=== PATIENT | male | born 1960 | race Caucasian/White ===

== ENCOUNTER 2023-05-15 23:39 | Inpatient (IN) | payer MEDICARE, OTHER, SELFPAY ==
[2023-05-15 21:04] VITALS: BMI 41.9
--- NOTE | 2023-05-15 21:29 | ED.CVA ---
History of Present Illness
General
Chief Complaint: CVA/TIA Symptoms
Source: patient and ambulance crew
Exam Limitations: none
Time Seen by Provider: 05/15/23 21:12
Nursing documentation reviewed up to this point in time: agreed with
Onset of Stroke Symptoms
Onset of symptoms known: Yes
Date of onset of symptoms: 05/15/23
Time of onset of symptoms: 19:30
Travel History
Have you had any contact with someone who has COVID-19?: Unable to Answer
Do you have any symptoms of coronavirus? Fever > 100 degrees, chills, cough, shortness of breath, sore throat, loss of taste or smell, muscle aches, or headache?: Unable to Answer
History of Present Illness
History of Present Illness:
62-year-old male presents emergency department after being found on the floor of his bathroom from a syncope episode at 7:30 PM. He had slurred speech and right-sided weakness for EMS. He has a history of Parkinson's.
Past History
Past History
ED Past Medical History: CVA, GERD, HTN, Hypercholesterolemia, Hypothyroidism and Other (Parkinsons)
ED Past Surgical History: None
Social History
Tobacco: Former smoker
Alcohol: None
Personal:
Living: detention
Review of Systems
Review of Systems
Allergies reviewed?: Yes
All Other Systems: Not applicable
Constitutional: Reports no symptoms
EENT: Reports no symptoms
Respiratory: Reports no symptoms
Cardiac: Reports syncope
ABD/GI: Reports no symptoms
: Reports no symptoms
Musculoskeletal: Reports no symptoms
Skin: Reports no symptoms
Neurological: Reports weakness and other (Slurred speech)
Endocrine: Reports no symptoms
Hematologic/Lymphatic: Reports no symptoms
Psychiatric: Reports no symptoms
Phy Exam
Physical Exam
Physical Exam:
Physical Exam
General: Afebrile
Neck: supple. no meningeal signs. normal posterior pharynx
Heart: s1/s2 regular rate and rhythm, no murmur. equal radial
pulses.
HEENT: Pupils equal round reactive to light, EOMI
Lungs: no acute respiratory distress. clear bilaterally
Abdomen: normal bowel sounds. not tender. no CVAT
Neuro: Slurred speech, confused. No focal neurological deficits cranial nerves II through XII intact, unable to lift bilateral legs
Skin: no rash
Psychiatric: well kept. interactive and cooperative
Extremities: no edema. no calf tenderness. negative homans. good distal pulses
Scores
NIH Stroke Score
Level of Consciousness: 0 - Alert
LOC Questions: 0-Answers both correctly
LOC Commands: 0-Performs both correctly
Best Horizontal Gaze: 0-Normal
Visual Ferrara: 0=Normal, no visual loss
Facial Palsy: 0=Normal, symmetrical
Motor - Right Arm: 1=Drift < 10 seconds
Motor - Left Arm: 1=Drift < 10 seconds
Motor - Right Le-None vs. gravity
Motor - Left Le-None vs. gravity
Limb Ataxia: 0-Absent
Sensation: 0-Normal
Best Language: 0-No aphasia
Dysarthria: 2-Severe slurring
Extinction and Inattention: 0-No abnormality
Total Score:: 10
MRS Score
Modified Hendricks Scale (mRS): Moderate disability. Requires some help, able to walk unassisted.
Score: 3
Thrombolytic Contraindication
Inclusion and Exclusion criteria reviewed: Yes
Reasons for NON-Tx with Thrombolytics POSSIBLE Exclusions: Seizure at onset
Course
Orders/Labs/Results
Orders:
Orders
05/15/23 21:05
Electrocardiogram (*1) Urgent
Reason for Study: Other
Other Reason for Exam: Possible Stroke
CT Head W/o Cont STROKE ALERT Urgent
Reason For Exam: slurred speech, right sided weakness
EKG- Treatment ONCE
05/15/23 21:20
CT Head/Neck Ang STROKE ALERT Urgent
Comment:
Reason For Exam: slurred speech, confusion
05/15/23 21:46
Complete Blood Count/With Diff Urgent
Comprehensive Metabolic Panel Urgent
PTT Urgent
Prothrombin Time Urgent
Troponin I Urgent
05/15/23 22:34
CR Chest Portable - 1 View Urgent
Comment:
Reason For Exam: cough
Reason Study Needs to be Portable: Unable to Transport
Abnormal Lab Results
05/15/23
21:46
RBC 3.63 L 10^6/uL
(4.70-6.10)
Hgb 9.8 L g/dL
(13.0-18.0)
Hct 30.2 L %
(39.0-52.0)
MCHC 32.5 L g/dL
(33.0-37.0)
RDW 14.7 H %
(11.5-14.5)
Abs Immat Gran (auto) 0.2 H 10^3/uL
(0-0.05)
Absolute Lymphs (auto) 0.7 L 10^3/uL
(1.2-3.4)
Immature Gran % 3.2 H %
(0-0.5)
Neutrophils % 77.6 H %
(42.2-75.2)
Lymphocytes % 10.0 L %
(20.5-51.1)
BUN 33 H mg/dl
(9-20)
Creatinine 1.5 H mg/dL
(0.7-1.3)
Glucose 127 H mg/dl
(70-99)
Total Protein 5.9 L g/dl
(6.3-8.2)
Albumin 2.8 L g/dl
(3.5-5.0)
05/15/23 21:46
05/15/23 21:46
Vital Signs
Initial and Last Documented VS:
Initial Vital Signs
Temp Pulse Resp BP Pulse Ox
98.2 F 75 14 129/72 96
05/15/23 21:33 05/15/23 21:33 05/15/23 21:33 05/15/23 21:33 05/15/23 21:33
Last Documented Vital Signs
Temp Pulse Resp BP Pulse Ox
98.2 F 75 14 129/72 96
05/15/23 21:33 05/15/23 21:33 05/15/23 21:33 05/15/23 21:33 05/15/23 21:33
MDM/Problems Addressed
Differential Diagnosis Includes:
CVA, TIA, syncope
MDM/Problems Addressed:
62-year-old male with right-sided weakness and confusion, now resolving. No weakness seen on my exam. CT head no acute findings. Discussed with Dr. Lee, who does not recommend TNK. This is based on patient's resolving symptoms and
presentation with syncope.
Chronic conditions affecting care: HTN and Neurological disorder (epilepsy)
Acute Exacerbation and/or Progression of Chronic Illness: HTN and Neurological disorder
*Radiology
Radiology exam reviewed: radiology read reviewed (CT head no acute findings, CT a head and neck no acute findings, basilar tip aneurysm)
*Pulse Oximetry
Patient hypoxic: no
*EKG
Interpreted by ED Provider?: Yes
EKG Intrepretation Date: 05/15/23
EKG Intrepretation Time: 21:42
Interpretation: normal
Comparison EKG: changes noted
Heart Rate: 73
Rate: normal
Rhythm: sinus
Lowry: normal axis
Interval: normal interval
QRS Pattern: normal QRS
Ischemia: no ischemia
*[employer] Interpretation
Rate: normal
Interpretation: normal
Heart Rate: 75
Rhythm: sinus
*Critical Care Note
Total Time (30-74mins, 75-104mins- exclusive of procedures): 30
comment:
Critical care statement: A total of 30 minutes of critical care time was provided for this patient. This includes management of unstable vital signs, evaluation of the patient at bedside, reviewing the patient's pertinent medical records, discussion
with consultants, review of old EKGs and review of pertinent medical records. This time with separate from time utilized to perform the aforementioned documented procedures
Data Reviewed
Review of Other/Old Records Reveals: Labs (prior hb 12.2 on 11/27/21)
Prescriptions/Medications Considered But Not Given:
TNK considered but not indicated
Patient Management
Social determinants of health affecting care: Living situation and Strong social support
Discussion with other providers: Hospitalist and Survey Crew Chief (neurology Dr. Lee)
Escalation/DeEscalation of care consider admission/obs:
admit indicated
ED Attending Note
-
Portions of this chart may have been created with voice recognition software.� Occasional wrong word or��sound alike� substitutions may have occurred due to the inherent limitations of voice recognition software.
Discharge Plan
Departure
Patient Disposition: Admit
Date of Disposition: 05/15/23
Time of Disposition: 22:20
Admit to: Telemetry
Presentation/result/management discussed w/ accepting MD/DO: Hospitalist
Patient with high blood pressure during this ER visit?: Yes
Condition: Fair
Discharge Problem:
Syncope, TIA (transient ischemic attack)
Prescriptions:
No Action
loratadine [Claritin] 10 mg Tablet
10 mg PO DAILY PRN (Reason: allergies)
ziprasidone HCl [Geodon] 80 MG capsule
80 mg PO BID
furosemide [Lasix] 40 MG tablet
40 mg PO DAILY
divalproex 125 MG capsule, delayed rel sprinkle
625 mg PO BID
tramadol 50 MG tablet
50 mg PO Q8HPRN PRN (Reason: Moderate Pain)
omeprazole 20 MG capsule,delayed release(DR/EC)
20 mg PO BID
acetaminophen 325 MG tablet
650 mg PO Q6H MDD 3000 MG PRN (Reason: Mild pain/Temp>100)
magnesium hydroxide 30 ML suspension
30 ml PO DAILY PRN (Reason: if no bm x 3 days)
bisacodyl [OneLAX Bisacodyl] 10 MG suppository
10 mg AR DAILY PRN (Reason: If MOM ineffective)
Enema 135 ML enema
118 ml RC DAILY PRN (Reason: if dulcolax ineffective)
lidocaine 4 % Cream
1 applic TOPICAL BID
Rx Instructions:
apply to back
levothyroxine [Synthroid] 25 mcg Tablet
25 mcg PO DAILY
gabapentin 300 mg Capsule
300 mg PO TID
carbidopa-levodopa 25-100 mg Tablet
1 tab PO TID
ketoconazole 2 % Cream
1 applic TOPICAL BID
Rx Instructions:
Apply to Face and Ears
Biofreeze (menthol) 4 % Gel
1 applic TOPICAL Q6H PRN (Reason: topical pain)
Rx Instructions:
apply to affected area/ b/l arm
triamcinolone acetonide 40 mg/mL Suspension
40 mg IM PRN PRN (Reason: lower back pain)
Rx Instructions:
administered by MD only
simvastatin 40 mg Tablet
40 mg PO HS
lidocaine HCl 10 mg/mL (1 %) Solution
2 ml IM ONCE PRN (Reason: low back pain)
Rx Instructions:
Administration by MD only
diclofenac sodium [Voltaren] 1 % Gel
1 ea TOPICAL DAILY
Rx Instructions:
Left Shoulder Pain
Robitussin Severe Day/Night
10 ml PO Q6H PRN (Reason: cough)
valacyclovir 1 gram tablet
1,000 mg PO Q12H
Rx Instructions:
for 1 days
pseudoephedrine-guaifenesin [Mucinex D] 60-600 mg Tablet Extended Release 12 Hr
1 tab PO TID
dexamethasone 2 mg tablet
2 mg PO DAILY
ergocalciferol (vitamin D2) [Vitamin D2] 1,250 mcg (50,000 unit) Capsule
1,250 mcg PO QMONTH
clobetasol 0.05 % ointment
1 applic TOPICAL QPM
Rx Instructions:
apply to lower leg, left arm
Santyl 250 unit/gram Ointment
1 applic TOPICAL DAILY
Rx Instructions:
apply to RLE, LLE for wound care
albuterol sulfate 90 mcg/actuation Hfa Aerosol Inhaler
2 puff INHALATION R Q6 PRN (Reason: sob/wheezing/cough)
Cepacol Sore Throat (mohini-men) 15-2.6 mg Lozenge
1 evaristo MUCOUS MEMBRANE Q2H PRN (Reason: pharyngitis)
[2023-05-15 21:33] VITALS: BP 129/72
[2023-05-15 21:34] VITALS: BP 129/72
[2023-05-15 21:56] LABS: % Basophils 0.1 % (0-2); % Eosinophils 0.7 % (0-6); % Immature Granulocytes 3.2 % (0-0.5); % Monocytes 8.4 % (1.7-9.3); % Neutrophils 77.6 % (42.2-75.2); Absolute Eosinophils 0.1 10^3/uL (0-0.7); Absolute Immature Granulocytes 0.2 10^3/uL (0-0.05); Absolute Lymphocytes 0.7 10^3/uL (1.2-3.4); Absolute Monocytes 0.6 10^3/uL (0.1-0.6); Absolute Neutrophils 5.2 10^3/uL (1.4-6.5); Hematocrit 30.2 % (39.0-52.0); Hemoglobin 9.8 g/dL (13.0-18.0); Mean Corp Hgb Conc. 32.5 g/dL (33.0-37.0); Mean Corpuscular Volume 83.2 fL (80.0-94.0); Nucleated Red Blood Cells % 0 % (-); Platelet Count 160 10^3/uL (130-400); Red Blood Cell Count 3.63 10^6/uL (4.70-6.10); Red Cell Dist. Width 14.7 % (11.5-14.5); White Blood Cell Count 6.8 10^3/uL (4.8-10.8)
[2023-05-15 22:00] VITALS: BP 117/75
[2023-05-15 22:07] LABS: INR 1.06; PT 13.8 Sec (11.4-14.6)
[2023-05-15 22:08] LABS: APTT 32.5 Sec (23.4-35.0)
[2023-05-15 22:10] LABS: ALT (SGPT) < 10 U/L (0-50); AST (SGOT) 39 U/L (17-59); Albumin 2.8 g/dl (3.5-5.0); Alkaline Phosphatase 79 U/L (38-126); Blood Urea Nitrogen 33 mg/dl (9-20); Calcium 8.9 mg/dl (8.4-10.2); Carbon Dioxide 29 mmol/L (22-30); Chloride 102 mmol/L (98-107); Estimated Creatinine Clearance 67 ml/min; Glucose 127 mg/dl (70-99); Potassium 4.3 mmol/L (3.5-5.1); Sodium 138 mmol/L (135-145); Total Bilirubin 0.4 mg/dl (0.2-1.3); Total Protein 5.9 g/dl (6.3-8.2); eGFR 52.64
[2023-05-15 22:20] LABS: Troponin I < 0.012 ng/ml
[2023-05-15 23:00] VITALS: BP 118/69
--- NOTE | 2023-05-15 23:22 | HPS.HSE ---
Family Physician
-
Family Physician: Terry Borden DO
Chief Complaint
-
syncope
History of Present Illness
62-year-old male past medical history of Parkinson disease, seizure disorder, psychotic disorder, CVA, hypertension, GERD, hyperglycemia, hypothyroidism, psoriasis, hyperlipidemia, chronic kidney disease presenting after being found on the floor of
his bathroom from a syncopal episode 7:30 PM. He had slurred speech and right-sided weakness as per EMS. Patient unable to provide much history due to lethargy.
Patient denies any pain. He denies any fevers or chills or urinary symptoms.
Denies any alcohol or smoking.
Medical History
Past Medical History
Past Medical History: Reports Other (Parkinson disease, seizure disorder, psychotic disorder, CVA, hypertension, GERD, hyperglycemia, hypothyroidism, psoriasis, hyperlipidemia, chronic kidney disease)
Past Surgical History: Reports None
Social History
Tobacco: Non-smoker
Alcohol: None
Drug: None
Family History
Family History: Not pertinent
Allergies / Home Medications
Allergies reflects when Allergies were last updated in [email or web address].
Home Medications with original date entered in [email or web address]
Allergy/Medication List:
Allergies
Allergy/AdvReac Type Severity Reaction Status Date / Time
No Known Allergies Allergy Verified 05/15/23 21:36
Home Medications
acetaminophen 325 mg tablet 650 mg PO Q6H PRN Mild pain/Temp>100 07/26/21
bisacodyl 10 mg rectal suppository (OneLAX Bisacodyl) 10 mg RI DAILY PRN If MOM ineffective 07/26/21
divalproex 125 mg capsule,delayed release sprinkle 625 mg PO BID 07/26/21
furosemide 40 mg tablet (Lasix) 40 mg PO DAILY 07/26/21
loratadine 10 mg tablet (Claritin) 10 mg PO DAILY PRN allergies 07/26/21
magnesium hydroxide 400 mg/5 mL oral suspension 30 ml PO DAILY PRN if no bm x 3 days 07/26/21
omeprazole 20 mg capsule,delayed release 20 mg PO BID 07/26/21
sodium phosphates 19 gram-7 gram/118 mL enema (Enema) 118 ml RC DAILY PRN if dulcolax ineffective 07/26/21
ziprasidone HCl 80 mg capsule (Geodon) 80 mg PO BID 07/26/21
carbidopa 25 mg-levodopa 100 mg tablet 1 tab PO TID 09/10/22
gabapentin 300 mg capsule 300 mg PO TID 09/10/22
ketoconazole 2 % topical cream 1 applic topical BID 09/10/22
levothyroxine 25 mcg tablet (Synthroid) 25 mcg PO DAILY 09/10/22
lidocaine 4 % topical cream 1 applic topical BID 09/10/22
menthol 4 % topical gel (Biofreeze (menthol)) 1 applic topical Q6H PRN topical pain 09/10/22
simvastatin 40 mg tablet 40 mg PO HS 09/10/22
triamcinolone acetonide 40 mg/mL suspension for injection 40 mg IM PRN PRN lower back pain 09/10/22
Robitussin Severe Day/Night 10 ml PO Q6H PRN cough 11/27/22
diclofenac sodium 1 % topical gel 1 ea topical DAILY 11/27/22
lidocaine HCl 10 mg/mL (1 %) injection solution 2 ml IM ONCE PRN low back pain 11/27/22
albuterol sulfate 90 mcg/actuation aerosol inhaler 2 puff inhalation R Q6 PRN sob/wheezing/cough 05/15/23
benzocaine 15 mg-menthol 2.6 mg lozenges (Cepacol Sore Throat (benzocaine-menthol)) 1 evaristo mucous membrane Q2H PRN pharyngitis 05/15/23
clobetasol 0.05 % topical ointment 1 applic topical QPM 05/15/23
collagenase clostridium histo. 250 unit/gram topical ointment (Santyl) 1 applic topical DAILY 05/15/23
dexamethasone 2 mg tablet 2 mg PO DAILY 05/15/23
ergocalciferol (vitamin D2) 1,250 mcg (50,000 unit) capsule (Vitamin D2) 1,250 mcg PO QMONTH 05/15/23
pseudoephedrine-guaifenesin ER 60 mg-600 mg tablet,extend release 12hr (Mucinex D) 1 tab PO TID 05/15/23
valacyclovir 1 gram tablet 1,000 mg PO Q12H 05/15/23
Review of Systems
-
History Source: Patient
A 12 point ROS was completed and negative except as noted: Yes
Constitutional: Reports No Symptoms
EENT: Reports No Symptoms
Respiratory: Reports No Symptoms
Cardiac: Reports No Symptoms
Abdomen/GI: Reports No Symptoms
: Reports No Symptoms
Musculoskeletal: Reports No Symptoms
Skin: Reports No Symptoms
Neurological: Reports No Symptoms
Endocrine: Reports No Symptoms
Hematologic/Lymphatic: Reports No Symptoms
Psych: Reports No Symptoms
Physical Exam
Vital Signs
Vital Signs
Temp Pulse Resp BP Pulse Ox
98.2 F 70 16 117/75 93
05/15/23 21:33 05/15/23 22:45 05/15/23 22:45 05/15/23 22:00 05/15/23 22:45
Physical Exam
General: Well Developed, Well Nourished and No Apparent Distress
HEENT: NormoCephalic, Moist mucous membranes and Atraumatic
Respiratory: Clear
Cardiac: S1/S2 and Regular Rhythm; No Murmur or Rub
GI: Soft, Non Tender, Non Distended and Normal Bowel Sounds; No Organomegaly
Rectal: Deferred by Provider
Musculoskeletal: No Clubbing, No Cyanosis and No Edema
Skin: No Rash
Neuro: Slurred Speech, Facial Droop and Other (right facial droop, bilteral motor deficits )
Laboratory Results
-
05/15/23 21:46
05/15/23 21:46
Laboratory Results
PT 13.8 Sec (11.4-14.6) 05/15/23 21:46
INR 1.06 05/15/23 21:46
APTT 32.5 Sec (23.4-35.0) 05/15/23 21:46
Total Bilirubin 0.4 mg/dl (0.2-1.3) 05/15/23 21:46
AST 39 U/L (17-59) 05/15/23 21:46
ALT < 10 U/L (0-50) 05/15/23 21:46
Alkaline Phosphatase 79 U/L (38-126) 05/15/23 21:46
Troponin I < 0.012 ng/ml 05/15/23 21:46
Data Reviewed
-
Lab Data: Labs Reviewed by me
Old Records: Reviewed
Impression/Plan
-
IMPRESSION:
PLAN:
# Syncopal episode concerning for CVA
# 7 mm basilar tip aneurysm
-Patient AAO x 2 with significant right-sided facial and dysarthria as well as motor deficits
-NIH score of 10
-CT head no acute abnormality
-CTA head and neck no significant vascular occlusion or dissection but shows 7 mm basilar tip aneurysm
-ER spoke with neurology who recommended against TNK given aneurysm
-300 mg rectal aspirin given, continue daily
-Check MRI brain
-Neurochecks/NIH checks
-N.p.o. for now including oral medications, since significant facial droop and dysarthria
-Check speech evaluation
History of CVA
Parkinson's disease
-resume Carbidopa-levodopa when able
Seizure disorder
-Continue Depakote as IV while unable to take p.o.
History of psychotic disorder
-Hold Geodon
History of conversion disorder
Essential hypertension
GERD
-Continue omeprazole when able
Hypercholesterolemia
-Continue statin when able
Hypothyroidism
-Continue levothyroxine when able
Psoriasis
-Continue steroid cream
Chronic kidney disease
-Renal function at baseline
Chronic venous insufficiency
-Hold Lasix
Dexamethasone
-Unclear why takes his
Valacyclovir
-Unclear why takes this
Full code
DVT prophylaxis-SCDs
N.p.o.
[2023-05-15] MEDS: ASPIRIN 300 MG RECTAL (23:42)
[2023-05-16] VITALS (10 sets, daily range): BP systolic 113–141; BP diastolic 65–84; PULSE 69; O2SAT 98; BMI 41.8
[2023-05-16] MEDS: DEPACON 56.25 MG IV (00:21)
--- NOTE | 2023-05-16 00:25 | PTCARENOTE ---
Patient received from ED via stretcher. Patient pulled over onto the bed. AAOx3, VSS. Patient arrived on 2LO2. No home O2 use. Patient NIH of 9. Mild slurring, weakness of LE, passed swallow screen. Patient has wounds to his b/l lower extremities
stating he has had them for a long time now. Wrapped in kerlex with ABD pad. Call rosa is within reach.
--- NOTE | 2023-05-16 07:59 | CON.NEURO4 ---
Addendum entered and electronically signed by Preston Lee MD 05/16/23 14:39:
I saw and evaluated the patient I reviewed her by Mely and agree regarding the following comments:
62-year-old male with a past medical history of Parkinson's disease, epilepsy, chronic disorder on Geodon, left internal capsule ischemic stroke, peripheral neuropathy, CKD presenting to hospital after a suspected syncopal event followed by
right-sided arm and leg weakness and speech abnormality. Patient recalls that he had been sitting down on the toilet urinating and the next thing he remembers he was being attended to by medical personnel. He reports that his right-sided weakness
has resolved, seem to mostly resolved by time of ER evaluation, he reports that his speech is not at baseline. Currently says he is not taking aspirin. No further information regarding his history of epilepsy for which she is on divalproex. He
was diagnosed with Parkinson's disease around 5 to 6 years ago and does take carbidopa/levodopa for this.
Neurologic examination shows cooperative mental status with no aphasia, there is moderate dysarthria present, extraocular movements slowed saccades and smooth pursuit movements, noes gaze preference, visual ferrara are full smile is symmetric. Motor
examination shows moderate global bradykinesia and parkinsonism no resting tremor is seen, mild bilateral cogwheel rigidity, no pronator drift or abduction and shows symmetric 3/5 withdrawal of hip flexion to noxious stimulation bilaterally.
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
MRI of the brain shows no acute infarction shows moderate age-related global atrophy. No hemorrhage no masses or edema no hydrocephalus. Chronic left basal ganglia lacunar infarction.
Assessment: Most likely etiology of the events was an episode of vasovagal/micturition syncope from urination, and the subsequent hypoperfusion of the brain with syncope on top of the chronic left basal ganglia infarction on brain MRI most likely
led to the transient right arm and leg weakness and speech difficulty. Valproic acid levels nontoxic. Patients with Parkinson's can have fluctuations in speech abnormalities due to metabolic or medication causes. Unlikely this event is a TIA
given the accompanying syncope.
Basilar artery aneurysm is asymptomatic but the size and location of the posterior circulation are concerning that he does require neurointerventional evaluation to address whether or not to pursue treatment of this lesion.
Recommendations
-Nonurgent eventual evaluation by vascular neurosurgery, interventional artery aneurysm, the aneurysm would not contraindicate chronic aspirin monotherapy with the chronic ischemic stroke seen on brain MRI
-Check orthostatic vital signs
-Minimize sedating medications
-Okay to switch to p.o. divalproex 625 mg twice daily which is his home dose
-Start aspirin 81 mg daily he was given aspirin load last night
-No changes to his home Sinemet regimen
-Neurologic checks
-No further brain imaging necessary
Original Note:
Documented by User: Mely Heard NP 05/16/23 14:31
Consultation - Neurology 4
-
CONSULTING PHYSICIAN: Naye Lee MD
REFERRING PHYSICIAN: Hospitalists/Dr. Tolentino
DICTATED BY: JIM Oropeza
DATE/TIME OF REQUEST: 05/15/23
DATE/TIME OF CONSULTATION: 05/16/23
Reason for Consultation: Slurred speech, right-sided weakness
History of Present Illness:
This is a 62-year-old left-handed male who has presented to the hospital on 05/15/23 from a [place] with report of a syncopal event and acute onset slurred speech and right-sided weakness. Patient reports he was on the toilet urinating when the next
thing he knew he woke up in an ambulance. He denies feeling dizzy or having a bowel movement prior to losing consciousness. Patient reports that when he woke up, his speech was slurred/difficult to get his words out. EMS noted right-sided weakness.
Patient only endorses chronic BLE weakness due to his leg wounds/edema. He ambulates with a walker at baseline. in the ER, CT head was obtained and demonstrates an old left internal capsule ischemic infarct but no acute abnormalities. CTA head/neck
is negative for significant stenosis or dissection but demonstrates an unruptured 7mm basilar tip aneurysm. NIHSS was a 10. Due to his improving symptoms and incidental large aneurysm finding, TNK was not recommended. Patient was loaded with rectal
aspirin due to severe dysarthria. Today, he notes that his speech is still abnormal and he has some left eye discomfort, but otherwise he feels at his baseline. He denies any dizziness, vision changes, swallowing difficulty, nausea, numbness, upper
extremity weakness, chest pain, palpitations, and shortness of breath. He endorses that he had a stroke in the past but cannot recall if he had any symptoms with that event and he is not taking any blood-thinning medications. He denies any changes
in his seizure medications and notes that he has not had a seizure in a long time but cannot provide further details about this. He notes that he was diagnosed with Parkinson disease about 5-6 years ago. He tolerates Sinemet well and denies any
overt symptoms of parkinson disease. He does not think he sees an outpatient neurologist.
Past Medical History: Left internal capsule ischemic stroke, Parkinson disease, seizure disorder, Schizophrenia, conversion disorder, hypothyroidism, HLD, GERD, psoriasis, CKD, chronic venous insufficiency, lower extremity nonhealing wounds,
peripheral neuropathy
Surgical History: Right carpal tunnel release/ganglion cyst removal
Family History: Reviewed and noncontributory.
Social History: Former smoker. Former alcohol abuse. Denies current alcohol and illicit drug use.
Allergies: No known allergies.
Home Medications: See below.
Review of Symptoms:
Patient denies any fever, headache, chest pain, shortness of breath, GI or symptoms.
�Per the HPI.�All systems are reviewed negative except above.
Physical Exam:
The patient is afebrile, abdomen is nondistended, breathing is unlabored, skin is warm, BLE with nonhealing wounds, purple discoloration, foul odor.
NIH Stroke Scale:
I performed the NIH stroke scale on the patient on 05/16/23 at 0900. The patient scored 6 points on the NIH stroke scale assessment, which were assigned as follows: See below.
Neurologic Examination:
The patient is awake, alert and oriented x 3. He is able to follow commands and answer questions appropriately. There is no aphasia or dysarthria. On cranial nerve assessment, pupils are 3 mm bilateral, round and reactive to light and
accommodation. Left eye lateral corneal erythema. Visual ferrara are full. Extraocular movements are intact. Facial sensations are intact and bilaterally symmetrical, there is no facial asymmetry. Hearing is intact bilaterally to normal conversation
volume. Tongue palate and uvula are midline. Sternocleidomastoid strengths are full bilaterally. Motor strengths are 5/5 bilateral upper and 2/5 bilateral lower extremities on medical research [place] scale. There is very slight pronator drift in
the RUE. Low amplitude semi rhythmic tremor noted in distal bilateral upper extremities at rest and with exertion. Babinski is absent bilaterally. There was no extinction noted on double simultaneous stimulation. Coordination is intact by finger to
nose bilaterally. Tone and bulk are normal.
Lab Results: See below.
Neuro Imaging:
1. CT Head 05/15/23: No acute intracranial abnormality noted. Chronic senescent changes. ASPECTS Score: 10.
2. CTA Head/Neck 05/15/23: No significant vascular occlusion or dissection. 7 mm basilar tip aneurysm.
Differentials for the patient's presentation include:
1. Acute ischemic stroke possibly producing dysarthria.
2. Unconscious episode likely vasovagal syncope.
3. Low concern for seizure.
4. Possible orthostasis.
5. 7mm basilar tip aneurysm.
Patient has the following risk factors for their symptoms: Hx stroke, HLD, seizure disorder, conversion disorder, Parkinson disease
IV Tenecteplase/IAT candidacy: Not a candidate due to improving symptoms and large basilar aneurysm.
Recommendations:
-Continue aspirin 81mg daily, indefinitely.
-Permissive hypertension SBP<220, DBP<120 until 1930 tonight, then goal normotension.
-Check orthostatic vital signs.
-MRI brain noncontrast ordered/pending.
-TTE ordered/pending.
-Continue home divalproex 625mg BID.
-Continue home Sinemet 25-100 TID.
-LDL goal <70. LDL is 68. Continue home simvastatin 40mg daily as LDL is at goal.
-Goal normoglycemia, hbA1c is 5.6.
-NIHSS and neurological checks per unit guidelines.
-Provide patient with a stroke education packet.
-PT/OT/ST evaluations.
-DVT prophylaxis.
-Followup with neurosurgery regarding aneurysm.
-Will follow pending results.
Discussed patient care with: Dr. Lee, the patient
NIH Stroke Score
Subsequent NIH Scale
Date of Subsequent NIH Scale: 05/16/23
Time of Subsequent NIH Scale: 09:00
NIH Stroke Score
Level of Consciousness: 0 - Alert
LOC Questions: 0-Answers both correctly
LOC Commands: 0-Performs both correctly
Best Horizontal Gaze: 0-Normal
Visual Ferrara: 0=Normal, no visual loss
Facial Palsy: 0=Normal, symmetrical
Motor - Right Arm: 1=Drift < 10 seconds
Motor - Left Arm: 0=No drift 10 seconds
Motor - Right Le-Partial vs. gravity
Motor - Left Le-Partial vs. gravity
Limb Ataxia: 0-Absent
Sensation: 0-Normal
Best Language: 0-No aphasia
Dysarthria: 1-Mild slurring
Extinction and Inattention: 0-No abnormality
Total Score:: 6
Vital Signs and Labs
-
Vital Signs and Labs:
Vital Signs
Temp Pulse Resp BP Pulse Ox
98.0 F 63 18 130/80 97
05/16/23 11:13 05/16/23 11:13 05/16/23 11:13 05/16/23 11:13 05/16/23 13:13
Lab Results
05/15/23 21:46
05/15/23 21:46
PT 13.8 Sec (11.4-14.6) 05/15/23 21:46
INR 1.06 05/15/23 21:46
APTT 32.5 Sec (23.4-35.0) 05/15/23 21:46
Sodium 138 mmol/L (135-145) 05/15/23 21:46
Potassium 4.3 mmol/L (3.5-5.1) 05/15/23 21:46
BUN 33 mg/dl (9-20) H 05/15/23 21:46
Glucose 127 mg/dl (70-99) H 05/15/23 21:46
Calcium 8.9 mg/dl (8.4-10.2) 05/15/23 21:46
LDL Cholesterol, Calc 68 mg/dl 05/16/23 06:20
Medications
-
Active Medications
Generic Name Dose Route Start Last Admin
Trade Name Freq PRN Reason Stop Dose Admin
Acetaminophen 650 mg 05/16/23 01:40
Acetaminophen 650 Mg Rectal Suppository RECTAL 06/13/23 01:39
Q4HPRN PRN
YOU, mild pain, or temp >100.4F
Acetaminophen 650 mg 05/16/23 13:05
Acetaminophen 325 Mg Tablet PO 06/13/23 13:04
Q6HPRN PRN
Mild pain/Temp>100
Albuterol 2 puff 05/16/23 13:05
Albuterol Hfa [90 Mcg/Dose] Inhaler INH 06/13/23 13:04
R Q6HPRN PRN
sob/wheezing/cough
Protocol
Aspirin 300 mg 05/16/23 08:00 05/16/23 08:35
Aspirin 300 Mg Rectal Suppository RECTAL 06/13/23 07:59 300 mg
DAILY DEO Administration
Atorvastatin Calcium 20 mg 05/16/23 22:00
Atorvastatin (Lipitor) 20 Mg Tablet PO 06/13/23 21:59
HS DEO
Bisacodyl 10 mg 05/16/23 13:05
Bisacodyl 10 Mg Rectal Suppository RECTAL 06/13/23 13:04
DAILYPRN PRN
If MOM ineffective
Carbidopa/Levodopa 1 tablet 05/16/23 16:00
Carbidopa (25 Mg)/Levodopa (100 Mg) Regular Release Tablet PO 06/13/23 15:59
TID DEO
Collagenase 1 applic 05/16/23 08:00 05/16/23 08:37
Collagenase Ointment 2.5 Gram Jar TOPICAL 06/13/23 07:59 1 applic
DAILY DEO Administration
Dexamethasone 2 mg 05/17/23 08:00
Dexamethasone 2 Mg Tablet PO 06/14/23 07:59
DAILY DEO
Divalproex Sodium 625 mg 05/16/23 20:00
Divalproex Sodium 125 Mg Sprinkle Capsule PO 06/13/23 19:59
BID DEO
Ergocalciferol units 05/16/23 14:00
Ergocalciferol (Vitamin D-2) 01714 Units Capsule PO 06/13/23 13:59
QMONTH DEO
Furosemide 40 mg 05/17/23 08:00
Furosemide 40 Mg Tablet PO 06/14/23 07:59
DAILY DEO
Gabapentin 300 mg 05/16/23 16:00
Gabapentin 300 Mg Capsule PO 06/13/23 15:59
TID DEO
Valproate Sodium 625 mg/ 56.25 mls @ 55 mls/hr 05/16/23 00:00 05/16/23 00:21
Sodium Chloride IV 06/13/23 00:00 56.25 mls
Q12H DEO Administration
Ketoconazole 1 applic 05/16/23 08:00 05/16/23 08:36
Ketoconazole 2% (Cream) 30 Gram Tube TOPICAL 06/13/23 07:59 1 applic
BID DEO Administration
Levothyroxine Sodium 25 mcg 05/17/23 08:00
Levothyroxine 25 Mcg Tablet PO 06/14/23 07:59
DAILY DEO
Lidocaine 1 applic 05/16/23 08:00 05/16/23 08:35
Lidocaine 4% Cream/Tegaderm Dressing 5 Gram Tube TOPICAL 06/13/23 07:59 1 applic
BID DEO Administration
Loratadine 10 mg 05/16/23 13:05
Loratadine 10 Mg Tablet PO 06/13/23 13:04
DAILYPRN PRN
allergies
Magnesium Hydroxide 30 ml 05/16/23 13:05
Milk Of Magnesia 30 Ml Cup PO 06/13/23 13:04
DAILYPRN PRN
if no bm x 3 days
Clobetasol 0.05 % 0 applic 05/16/23 18:00
Ointment TOPICAL 06/13/23 17:59
QPM DEO
(Menthol [Biofreeze 0 applic 05/16/23 01:40
(Menthol)] 4 % Gel) TOPICAL
Q6H PRN
topical pain
Non-Formulary Medication 1 evaristo 05/16/23 13:05
Benzocaine-Menthol [Cepacol Sore Throat (Roc-Men)] MUCOUS MEMBRANE
Q2H PRN
pharyngitis
Non-Formulary Medication 10 ml 05/16/23 13:05
Robitussin Severe Day/Night PO
Q6H PRN
cough
Non-Formulary Medication 1,000 mg 05/16/23 13:15
Valacyclovir PO 06/13/23 13:14
Q12H DEO
Non-Formulary Medication 80 mg 05/16/23 20:00
Ziprasidone Hcl [Geodon] PO 06/13/23 19:59
BID DEO
Pantoprazole Sodium 40 mg 05/16/23 20:00
Pantoprazole 40 Mg Delayed Release Tablet PO 06/13/23 19:59
BID DEO
Sodium Chloride 0 flush 05/16/23 02:00
Sodium Chloride 0.9% (Flush) Syringe IV 06/13/23 01:59
PER PROTOCOL DEO
Triamcinolone Acetonide 40 mg 05/16/23 13:05
Triamcinolone 40 Mg/Ml (Kenalog-40) 1 Ml Vial IM 06/13/23 13:04
PRN PRN
lower back pain
Home Medications
Medication Instructions Recorded
acetaminophen 325 mg tablet 650 mg PO Q6H PRN Mild 07/26/21
pain/Temp>100
bisacodyl 10 mg rectal suppository 10 mg DC DAILY PRN If MOM 07/26/21
(OneLAX Bisacodyl) ineffective
divalproex 125 mg capsule,delayed 625 mg PO BID Neurological 07/26/21
release sprinkle Condition
furosemide 40 mg tablet (Lasix) 40 mg PO DAILY Fluid 07/26/21
Retention/Swelling
loratadine 10 mg tablet (Claritin) 10 mg PO DAILY PRN allergies 07/26/21
magnesium hydroxide 400 mg/5 mL 30 ml PO DAILY PRN if no bm x 3 07/26/21
oral suspension days
omeprazole 20 mg capsule,delayed 20 mg PO BID Gastrointestinal Issue 07/26/21
release
sodium phosphates 19 gram-7 118 ml RC DAILY PRN if dulcolax 07/26/21
gram/118 mL enema (Enema) ineffective
ziprasidone HCl 80 mg capsule 80 mg PO BID Mental Health/Anxiety 07/26/21
(Geodon)
carbidopa 25 mg-levodopa 100 mg 1 tab PO TID Neurological Condition 09/10/22
tablet
gabapentin 300 mg capsule 300 mg PO TID Neurological 09/10/22
Condition
ketoconazole 2 % topical cream 1 applic topical BID Skin Issues 09/10/22
levothyroxine 25 mcg tablet 25 mcg PO DAILY Thyroid 09/10/22
(Synthroid)
lidocaine 4 % topical cream 1 applic topical BID Pain 09/10/22
menthol 4 % topical gel (Biofreeze 1 applic topical Q6H PRN topical 09/10/22
(menthol)) pain
simvastatin 40 mg tablet 40 mg PO HS High Cholesterol 09/10/22
triamcinolone acetonide 40 mg/mL 40 mg IM PRN PRN lower back pain 09/10/22
suspension for injection
Robitussin Severe Day/Night 10 ml PO Q6H PRN cough 11/27/22
diclofenac sodium 1 % topical gel 1 ea topical DAILY Pain 11/27/22
lidocaine HCl 10 mg/mL (1 %) 2 ml IM ONCE PRN low back pain 11/27/22
injection solution
albuterol sulfate 90 mcg/actuation 2 puff inhalation R Q6 PRN 05/15/23
aerosol inhaler sob/wheezing/cough
benzocaine 15 mg-menthol 2.6 mg 1 evaristo mucous membrane Q2H PRN 05/15/23
lozenges (Cepacol Sore Throat pharyngitis
(benzocaine-menthol))
clobetasol 0.05 % topical ointment 1 applic topical QPM Skin Issues 05/15/23
collagenase clostridium histo. 250 1 applic topical DAILY Skin Issues 05/15/23
unit/gram topical ointment (Santyl)
dexamethasone 2 mg tablet 2 mg PO DAILY Anti-Inflammatory 05/15/23
ergocalciferol (vitamin D2) 1,250 1,250 mcg PO QMONTH Supplement 05/15/23
mcg (50,000 unit) capsule (Vitamin
D2)
pseudoephedrine-guaifenesin ER 60 1 tab PO TID Congestion 05/15/23
mg-600 mg tablet,extend release
12hr (Mucinex D)
valacyclovir 1 gram tablet 1,000 mg PO Q12H Infection 05/15/23

Documented by User: Preston Lee MD 05/16/23 14:31
NIH Stroke Score
NIH Stroke Score
Total Score:: 6
[2023-05-16 08:03] LABS: HDL Cholesterol 38 mg/dl; LDL Cholesterol, Calculated 68 mg/dl; Total Cholesterol 135 mg/dl (50-199); Triglyceride 148 mg/dl (10-149); Very Low Density Lipoprotein 29 mg/dl (0-30)
--- NOTE | 2023-05-16 08:31 | W.PN.HOSP.TC ---
Today's Communication/Plan
-
MRI Brain
Neuro consult recommendations appreciated
Assessment / Plan
Assessment / Plan
Physical Exam
General: Not in acute distress
HEENT: Normocephalic, Atraumatic
Respiratory: Clear to Auscultation Bilaterally
Cardiac: S1/S2 and Regular Rhythm
GI: Soft, Non Tender, Non Distended and Normal Bowel Sounds
Musculoskeletal: No Cyanosis and No Edema
Skin: Warm. Dry.
Neuro: Slurred Speech, Facial Droop and Other (right facial droop, bilateral lower extremity weakness and numbness)

Assessment/Plan
# Syncopal episode concerning for CVA
# 7 mm basilar tip aneurysm
-Patient with significant right-sided facial and dysarthria as well as motor deficits
-NIH score of 10 on admission/presentation
-CT head no acute abnormality
-CTA head and neck no significant vascular occlusion or dissection but shows 7 mm basilar tip aneurysm
-ER spoke with neurology who recommended against TNK given aneurysm
-300 mg rectal aspirin given, continue daily
-Check MRI brain
-Neurochecks/NIH checks
-Speech therapist: on 05/16/23, recommended regular solids and thin liquids, they will follow patient
-Neurology consulted, recommendations appreciated
History of Cerebrovascular Accident
Parkinson's disease
-Resume Carbidopa-levodopa
Seizure disorder
-Continue home Depakote
History of psychotic disorder
-Will talk with neuro about resuming Geodon
History of conversion disorder
Essential hypertension
GERD
-Continue omeprazole
Hypercholesterolemia
-Continue statin
Hypothyroidism
-Continue levothyroxine
Psoriasis
-Continue steroid cream
Chronic kidney disease
-Renal function at baseline
Chronic venous insufficiency
-Resume home Lasix
Dexamethasone
-Unclear why takes his; continue
Valacyclovir
-Unclear why takes this; continue
History of Lower Extremity Wounds
History of Psoriasis?
Full code
DVT prophylaxis-SCDs
Anticipated Discharge: > 48 hours
Subjective/Interval History
-
Date of Service: May 16, 2023
Patient was seen and examined. He was lying in bed comfortably, wanted solid food, his speech is still not normal, and he cannot move or feel with his lower legs.
Objective Data
-
Labs:
Laboratory Results
05/15/23
21:46
WBC 6.8
Hgb 9.8 L
Hct 30.2 L
Plt Count 160
PT 13.8
INR 1.06
APTT 32.5
Sodium 138
Potassium 4.3
Chloride 102
Carbon Dioxide 29
BUN 33 H
Creatinine 1.5 H
Glucose 127 H
Calcium 8.9
Total Bilirubin 0.4
AST 39
ALT < 10
Alkaline Phosphatase 79
Vital Signs:
Vital Signs
Temp Pulse Resp BP Pulse Ox
98.5 F 73 18 134/84 96
05/16/23 07:22 05/16/23 07:22 05/16/23 07:22 05/16/23 07:22 05/16/23 07:22
I&O
05/15/23 05/16/23 05/17/23
06:59 06:59 06:59
Intake Total 1010 / 1010
Balance 1010 / 1010
[2023-05-16] MEDS: ASPIRIN 300 MG RECTAL (08:35)
[2023-05-16] MEDS: LMX 4 1 APPLIC TOPICAL ×2 (08:35→20:09)
[2023-05-16] MEDS: NIZORAL 2% CREAM 1 APPLIC TOPICAL ×2 (08:36→20:10)
[2023-05-16] MEDS: SANTYL OINTMENT 1 APPLIC TOPICAL (08:37)
[2023-05-16 09:32] LABS: Glycohemoglobin (HgbA1c) 5.6 % (4.0-5.6)
--- NOTE | 2023-05-16 10:56 | PTOTSP ---
Speech Therapy Assessment
Patient presents with a dysarthria characterized by reduced articulatory precision and minimal hypernasality. Expressive and receptive language as well as swallowing are deemed within functional limits.
Recommend:
1. Regular solids and thin liquids with patient able to select soft to chew foods
2. Meds with liquid as tolerated.
3. ST will follow up to improve speech quality and ensure diet tolerance. Follow up ST at sn[facility] indicated given current changes in speech and history of Parkinson's Disease
[2023-05-16 11:28] LABS: Depakane 41.8 ug/ml (50.0-120.0)
[2023-05-16] MEDS: DEPACON IV (15:02)
--- NOTE | 2023-05-16 15:50 | PN.CDI ---
CDI
- -
CDI:
Physician Documentation Request
Admit Date: 05/15/23 23:39
Dear Doctor Frida,
Clinical Indicators:
Height: 5 ft 8 in
Weight: 275 lbs
BMI: 41.8
note, 'BMI > 40 morbidly obese range..'
If possible, please provide an associated diagnosis related to the abnormal BMI (> or = to 40), such as:
Morbid Obesity
Obesity
Other
Use of terms such as suspected, likely, concern for, or probable (associated with a specific diagnosis that is being evaluated, monitored, or treated as if it exists) are acceptable and can be coded in the inpatient setting, when documented at the
time of discharge.
Thank you,
JOHANNA Byrd RN
CDI Specialist
available via tiger text
Please use your independent medical judgment in providing your response.
--- NOTE | 2023-05-16 16:12 | WOUNDNOTE ---
LEFT LATERAL LE WOUND
--- NOTE | 2023-05-16 16:13 | WOUNDNOTE ---
[facility] RN note: Patient admitted with CVA
See H&P for complete history.
PMH: Parkinsons, seizures, ARDS, HTN, urinary incontinence
Wound Location and type/assessment: Patient admitted with: Bilateral LE venous wounds in various stages of healing. Patient said wounds are debrided and care for at [facility]. Both wounds have some slough and some granulation tissue. Both wounds have
moderate amout of serous drainage.He states he does not usually wear compression. He has + audible pulses and dry skin with venous stasis changes. He is able to change position in bed and states good appetite ( he ate 75% of his lunch).
Pressure redistribution devices in place: Versa Care with Accumax, heels off-loaded with pillows under calves
Plan: Local wound care provided. Confirmed orders with hospitalist for compression with [facility]OOK. See worklist for details. JOSE hernandez. Will follow as needed.
--- NOTE | 2023-05-16 16:51 | CM ---
Alert awake oriented patient who lives skilled nursing at [facility]. He is assisted in all activities of daily living.He has a wheelchair and walker . He is non ambulatory.He has new oxygen.He requested to switch to [facility]. Referral placed for
both if bed available at [facility] .
Pharm[facility]
PCP DR Borden
PLAN If bed available at [facility] [place] If not return to [place]
[2023-05-16] MEDS: NEURONTIN 300 MG PO ×2 (17:38→21:35)
[2023-05-16] MEDS: SINEMET 25-100 1 TABLET PO ×2 (17:38→21:35)
[2023-05-16] MEDS: DEPAKOTE SPRINKLE 625 MG PO (20:09)
[2023-05-16] MEDS: GEODON 80 MG PO (20:09)
[2023-05-16] MEDS: PROTONIX 40 MG PO (20:09)
[2023-05-16] MEDS: LIPITOR 20 MG PO (21:35)
[2023-05-17] VITALS (9 sets, daily range): BP systolic 123–152; BP diastolic 59–86; PULSE 80; O2SAT 92–98; BMI 41.2
[2023-05-17] MEDS: TYLENOL 650 MG PO (04:17)
--- NOTE | 2023-05-17 08:33 | W.PN.NEURO.1 ---
Addendum entered and electronically signed by Preston Lee MD 05/17/23 12:29:
I saw and evaluated the patient reviewed the note by Mely and agree denying the following comments:
62-year-old male with a past ministry of Parkinson disease, epilepsy, schizophrenia presented to hospital with episode of losing consciousness after urination sitting down on the toilet and left-sided weakness.
No acute events overnight patient notes that speech is still abnormal, reports difficulty with leg strength and walking he does report using a walker at baseline. He is not sure when he was diagnosed with Parkinson's's disease or what symptoms led
to this diagnosis. He is not sure if he has a diagnosis of schizophrenia or not, reports does not see psychiatry or neurology sees the physician in the [place] [facility]. He reports he has not had seizure in a long time now he is not sure
what the manifestations of seizure are for him.
Neurologic examination shows dysarthria, poor historian, mild bradykinesia, no significant rigidity in the arms bilaterally no tremor.
Assessment: Most likely vasovagal/micturition syncope and then hypoperfusion of the brain on top of a chronic left basal ganglia infarct producing transient right arm and leg weakness. Continued speech abnormality I feel is most likely due to
chronic issues may be related to parkinsonism or a functional neurologic disorder. Unclear history of schizophrenia as well as epilepsy. He does not seem to have typical Parkinson's disease it is possible that he has drug-induced parkinsonism due
to long-term antipsychotic use.
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
Brain MRI with no acute infarct
Ambulatory function issues most likely due to history of peripheral neuropathy as well as leg edema patient reports history of psoriasis on the legs.
Recommendations
-Needs nonurgent neurosurgical/endovascular neurology evaluation of the basilar artery aneurysm discussed with patient that signs of severe sudden onset headache should prompt immediate 911 seeking medical attention
-Continue aspirin 81 mg daily for the chronic left basal ganglia stroke noted on brain imaging
-No changes recommended to valproic acid or Sinemet
-Defer to primary team for treatment of the leg edema and skin changes
-Mobilization physical therapy as able
-Would benefit from outpatient neurology and psychiatric following
Neurology will sign off call with questions or concerns
Original Note:
Today's Communication / Plan
-
.
Neuro Assessment/Plan
Assessment
62-year-old male with a past medical history of Parkinson's disease, epilepsy, chronic disorder on Geodon, left internal capsule ischemic stroke, peripheral neuropathy, CKD presenting to hospital after a suspected syncopal event followed by
right-sided arm and leg weakness and speech abnormality.� Patient recalls that he had been sitting down on the toilet urinating and the next thing he remembers he was being attended to by medical personnel.� He reports that his right-sided weakness
has resolved, seem to mostly resolved by time of ER evaluation, he reports that his speech is not at baseline.� Currently says he is not taking aspirin.� No further information regarding his history of epilepsy for which he is on divalproex. He
cannot recall why he has been taking Geodon for years but reports schizophrenia was mentioned at some point.� He was diagnosed with Parkinson's disease around 5 to 6 years ago and does take carbidopa/levodopa for this.
-CT Head 05/15/23: No acute intracranial abnormality noted. Chronic senescent changes. ASPECTS Score: 10.
-CTA Head/Neck 05/15/23: No significant vascular occlusion or dissection. 7 mm basilar tip aneurysm.
-MRI brain 05/16/23: There is no acute intracranial process. Mild to moderate diffuse volume loss. Moderate acute on chronic sinus disease.
I.� � Most likely etiology of the events was an episode of vasovagal/micturition syncope from urination, and the subsequent hypoperfusion of the brain with syncope on top of the chronic left basal ganglia infarction on brain MRI most likely led to
the transient right arm and leg weakness and speech difficulty.
II. MRI brain negative for acute stroke. TIA unlikely given syncope.
III.� � Low concern for seizure. Valproic acid level nontoxic.
IV.� � Possible orthostasis.
V.� � 7mm basilar tip aneurysm.
. Left eye irritation, corneal abrasion vs viral infection?
Plan
-Continue aspirin 81mg daily, indefinitely.
-Left eye evaluation/treatment per primary team.
-Check orthostatic vital signs.
-Continue home divalproex 625mg PO BID.
-Continue home Sinemet 25-100 TID.
-Avoid sedating medications.
-LDL goal <70. LDL is 68. Continue home simvastatin 40mg daily as LDL is at goal.
-Goal normoglycemia, hbA1c is 5.6.
-NIHSS and neurological checks per unit guidelines.
-Provide patient with a stroke education packet.
-PT/OT/ST evaluations.
-DVT prophylaxis.
-Followup with neurosurgery as an outpatient regarding 7mm basilar tip aneurysm.
-Patient should follow-up with a Neurologist as an outpatient, may follow-up with Neurology if he doesn't already have a neurologist. May see the [employer] or one of the physicians.
Subjective/Objective
Subjective Data
Date of Service: May 17, 2023
No acute events overnight. Patient complains of left eye pain and ongoing slurred speech. He denies any headache, dizziness, vision changes, swallowing difficulty, chest pain, palpitations, and shortness of breath. He endorses not being able to move
his legs but is able to lift them antigravity with extreme encouragement.
Objective Data
Vital Signs
Temp Pulse Resp BP Pulse Ox
97.8 F 62 20 124/69 99
05/17/23 07:49 05/17/23 07:49 05/17/23 07:49 05/17/23 07:49 05/17/23 07:49
Lab Results
05/15/23 21:46
05/15/23 21:46
PT 13.8 Sec (11.4-14.6) 05/15/23 21:46
INR 1.06 05/15/23 21:46
APTT 32.5 Sec (23.4-35.0) 02/28/24 21:46
Sodium 138 mmol/L (135-145) 05/15/23 21:46
Potassium 4.3 mmol/L (3.5-5.1) 05/15/23 21:46
BUN 33 mg/dl (9-20) H 05/15/23 21:46
Glucose 127 mg/dl (70-99) H 05/15/23 21:46
Calcium 8.9 mg/dl (8.4-10.2) 05/15/23 21:46
LDL Cholesterol, Calc 68 mg/dl 05/16/23 06:20
Patient Allergies
No Known Allergies Allergy (Verified 05/15/23 21:36)
Review of Systems
-
History Source: Patient
EENT: Eye Pain (left eye); Negative Blurry Vision, Decreased Vision or Swallowing Difficulty
Respiratory: Negative Cough or Trouble Breathing
Cardiac: Negative Chest Pain or Palpitations
Abdomen/GI: Negative Nausea
Neuro: Weakness and Speech Problem; Negative Dizzy, Headache, Numbness, Ataxia or Tremors
Physical Exam
-
General: No Apparent Distress
Eyes: No Ptosis, PERRLA and Other (left eye erythema)
HEENT: Normocephalic and Atraumatic
Neck: Full Range of Motion
Respiratory: No Dyspnea
GI: Non-distended
Extremities: Edema +2 (BLE wounds DSD/CDI)
Extended Neurological Exam
Mood & Affect: Mood Unremarkable and Affect Unremarkable
Attention Span & Concentration: Awake, Alert and Interactive
Memory: Unremarkable (AAOx3, poor historian) and Able to Recall
Tremor: Hand Tremor Absent and Head Tremor Absent
Involuntary Movement: None
Speech: Quantity Unremarkable, Rate of Production Unremarkable and Dysarthric
Cranial Nerve II: Left Eye: Pupillary Reactivity Unremarkable, Pupillary Size Unremarkable and Visual Ferrara Intact
Cranial Nerve II: Right Eye: Pupillary Reactivity Unremarkable, Pupillary Size Unremarkable and Visual Ferrara Intact
Cranial Nerves III, IV, : Extraocular Movement: Extraocular Movement Full in all Directions
Cranial Nerve V: Facial Sensation: Intact to Light Touch
Cranial Nerve VII: Facial Symmetry: Normal Facial Symmetry
Cranial Nerve VIII: Hearing: Unremarkable Hearing to Normal Conversational Volume
Cranial Nerves IX, X: Palate Movement: Palate Elevation Symmetric
Cranial Nerve XI: Shoulder Shrug: Unremarkable
Cranial Nerve XII: Tongue Protusion: Midline
Muscle Strength, Overall: Full in Upper Extremities and Other (BLE 3/5)
Muscle Bulk & Tone: Bulk Unremarkable and Tone Unremarkable
Pronator Drift: No Drift in Upper Extremities, Drift in Left Lower Extremity and Drift in Right Lower Extremity
Touch Sensation: Double Simultaneous Stimulation Unremarkable
Coordination: Jmnpas-[id number] Testing Unremarkable
Babinski Sign: Absent Bilaterally
Data Reviewed
-
CT-A: Report Reviewed and Image Reviewed
CT Head: Report Reviewed and Image Reviewed
MRI Head: Report Reviewed and Image Reviewed
Medical Test Reports: Report Reviewed (valproic acid level)
Orthostatic Testing: Ordered and Pending
Labs: Report Reviewed
Lipid Profile: Report Reviewed
HgbA1C: Report Reviewed
Reviewed with: Physician and Patient
Medications
-
Active Medications
Generic Name Dose Route Start Last Admin
Trade Name Freq PRN Reason Stop Dose Admin
Acetaminophen 650 mg 05/16/23 01:40
Acetaminophen 650 Mg Rectal Suppository RECTAL 06/13/23 01:39
Q4HPRN PRN
YOU, mild pain, or temp >100.4F
Acetaminophen 650 mg 05/16/23 13:05 05/17/23 04:17
Acetaminophen 325 Mg Tablet PO 06/13/23 13:04 650 mg
Q6HPRN PRN Administration
Mild pain/Temp>100
Albuterol 2 puff 05/16/23 13:05
Albuterol Hfa [90 Mcg/Dose] Inhaler INH 06/13/23 13:04
R Q6HPRN PRN
sob/wheezing/cough
Protocol
Aspirin 81 mg 05/17/23 08:00 05/17/23 09:36
Aspirin 81 Mg Chewable Tablet PO 06/14/23 07:59 81 mg
DAILY DEO Administration
Atorvastatin Calcium 20 mg 05/16/23 22:00 05/16/23 21:35
Atorvastatin (Lipitor) 20 Mg Tablet PO 06/13/23 21:59 20 mg
HS DEO Administration
Benzocaine/Menthol 1 lozenge 05/16/23 14:10
Benzocaine/Menthol Lozenge PO 06/13/23 14:09
Q2HPRN PRN
Sore throat
Bisacodyl 10 mg 05/16/23 13:05
Bisacodyl 10 Mg Rectal Suppository RECTAL 06/13/23 13:04
DAILYPRN PRN
If MOM ineffective
Carbidopa/Levodopa 1 tablet 05/16/23 16:00 05/17/23 09:51
Carbidopa (25 Mg)/Levodopa (100 Mg) Regular Release Tablet PO 06/13/23 15:59 1 tablet
TID DEO Administration
Collagenase 1 applic 05/16/23 08:00 05/17/23 09:38
Collagenase Ointment 2.5 Gram Jar TOPICAL 06/13/23 07:59 1 applic
DAILY DEO Administration
Dexamethasone 2 mg 05/17/23 08:00 05/17/23 09:40
Dexamethasone 2 Mg Tablet PO 06/14/23 07:59 2 mg
DAILY DEO Administration
Divalproex Sodium 625 mg 05/16/23 20:00 05/17/23 09:43
Divalproex Sodium 125 Mg Sprinkle Capsule PO 06/13/23 19:59 625 mg
BID DEO Administration
Ergocalciferol 50,000 units 05/24/23 08:00
Ergocalciferol (Vitamin D-2) 18077 Units Capsule PO 06/21/23 07:59
Q30D DEO
Furosemide 40 mg 05/17/23 08:00 05/17/23 09:48
Furosemide 40 Mg Tablet PO 06/14/23 07:59 40 mg
DAILY DEO Administration
Gabapentin 300 mg 05/16/23 16:00 05/17/23 09:40
Gabapentin 300 Mg Capsule PO 06/13/23 15:59 300 mg
TID DEO Administration
Guaifenesin 10 mg 05/16/23 14:14
Guaifenesin Oral Solution (200 Mg/10 Ml) Cup PO 06/13/23 14:13
Q6HPRN PRN
COUGH
Ketoconazole 1 applic 05/16/23 08:00 05/17/23 09:40
Ketoconazole 2% (Cream) 30 Gram Tube TOPICAL 06/13/23 07:59 1 applic
BID DEO Administration
Levothyroxine Sodium 25 mcg 05/17/23 08:00 05/17/23 09:25
Levothyroxine 25 Mcg Tablet PO 06/14/23 07:59 25 mcg
DAILY DEO Administration
Lidocaine 1 applic 05/16/23 08:00 05/17/23 09:41
Lidocaine 4% Cream/Tegaderm Dressing 5 Gram Tube TOPICAL 06/13/23 07:59 1 applic
BID DEO Administration
Loratadine 10 mg 05/16/23 13:05 05/17/23 11:07
Loratadine 10 Mg Tablet PO 06/13/23 13:04 10 mg
DAILYPRN PRN Administration
allergies
Magnesium Hydroxide 30 ml 05/16/23 13:05
Milk Of Magnesia 30 Ml Cup PO 06/13/23 13:04
DAILYPRN PRN
if no bm x 3 days
Clobetasol 0.05 % 0 applic 05/16/23 18:00
Ointment TOPICAL 06/13/23 17:59
QPM DEO
(Menthol [Biofreeze 0 applic 05/16/23 01:40
(Menthol)] 4 % Gel) TOPICAL
Q6H PRN
topical pain
Non-Formulary Medication 1,000 mg 05/16/23 13:15
Valacyclovir PO 06/13/23 13:14
Q12H DEO
Pantoprazole Sodium 40 mg 05/16/23 20:00 05/17/23 09:36
Pantoprazole 40 Mg Delayed Release Tablet PO 06/13/23 19:59 40 mg
BID DEO Administration
Sodium Chloride 0 flush 05/16/23 02:00
Sodium Chloride 0.9% (Flush) Syringe IV 06/13/23 01:59
PER PROTOCOL DEO
Ziprasidone 80 mg 05/16/23 20:00 05/17/23 09:42
Ziprasidone 20 Mg Capsule PO 06/13/23 19:59 80 mg
BID DEO Administration
Home Medications
Medication Instructions Recorded
acetaminophen 325 mg tablet 650 mg PO Q6H PRN Mild 07/26/21
pain/Temp>100
bisacodyl 10 mg rectal suppository 10 mg RI DAILY PRN If MOM 07/26/21
(OneLAX Bisacodyl) ineffective
divalproex 125 mg capsule,delayed 625 mg PO BID Neurological 07/26/21
release sprinkle Condition
furosemide 40 mg tablet (Lasix) 40 mg PO DAILY Fluid 07/26/21
Retention/Swelling
loratadine 10 mg tablet (Claritin) 10 mg PO DAILY PRN allergies 07/26/21
magnesium hydroxide 400 mg/5 mL 30 ml PO DAILY PRN if no bm x 3 07/26/21
oral suspension days
omeprazole 20 mg capsule,delayed 20 mg PO BID Gastrointestinal Issue 07/26/21
release
sodium phosphates 19 gram-7 118 ml RC DAILY PRN if dulcolax 07/26/21
gram/118 mL enema (Enema) ineffective
ziprasidone HCl 80 mg capsule 80 mg PO BID Mental Health/Anxiety 07/26/21
(Geodon)
carbidopa 25 mg-levodopa 100 mg 1 tab PO TID Neurological Condition 09/10/22
tablet
gabapentin 300 mg capsule 300 mg PO TID Neurological 09/10/22
Condition
ketoconazole 2 % topical cream 1 applic topical BID Skin Issues 09/10/22
levothyroxine 25 mcg tablet 25 mcg PO DAILY Thyroid 09/10/22
(Synthroid)
lidocaine 4 % topical cream 1 applic topical BID Pain 09/10/22
menthol 4 % topical gel (Biofreeze 1 applic topical Q6H PRN topical 09/10/22
(menthol)) pain
simvastatin 40 mg tablet 40 mg PO HS High Cholesterol 09/10/22
triamcinolone acetonide 40 mg/mL 40 mg IM PRN PRN lower back pain 09/10/22
suspension for injection
Robitussin Severe Day/Night 10 ml PO Q6H PRN cough 11/27/22
diclofenac sodium 1 % topical gel 1 ea topical DAILY Pain 11/27/22
lidocaine HCl 10 mg/mL (1 %) 2 ml IM ONCE PRN low back pain 11/27/22
injection solution
albuterol sulfate 90 mcg/actuation 2 puff inhalation R Q6 PRN 05/15/23
aerosol inhaler sob/wheezing/cough
benzocaine 15 mg-menthol 2.6 mg 1 evaristo mucous membrane Q2H PRN 05/15/23
lozenges (Cepacol Sore Throat pharyngitis
(benzocaine-menthol))
clobetasol 0.05 % topical ointment 1 applic topical QPM Skin Issues 05/15/23
collagenase clostridium histo. 250 1 applic topical DAILY Skin Issues 05/15/23
unit/gram topical ointment (Santyl)
dexamethasone 2 mg tablet 2 mg PO DAILY Anti-Inflammatory 05/15/23
ergocalciferol (vitamin D2) 1,250 1,250 mcg PO QMONTH Supplement 05/15/23
mcg (50,000 unit) capsule (Vitamin
D2)
pseudoephedrine-guaifenesin ER 60 1 tab PO TID Congestion 05/15/23
mg-600 mg tablet,extend release
12hr (Mucinex D)
valacyclovir 1 gram tablet 1,000 mg PO Q12H Infection 05/15/23
[2023-05-17] MEDS: SYNTHROID 25 MCG PO (09:25)
[2023-05-17] MEDS: PROTONIX 40 MG PO ×2 (09:36→19:50)
[2023-05-17] MEDS: LOW STRENGTH ASPIRIN 81 MG PO (09:36)
[2023-05-17] MEDS: SANTYL OINTMENT 1 APPLIC TOPICAL (09:38)
[2023-05-17] MEDS: DECADRON 2 MG PO (09:40)
[2023-05-17] MEDS: NEURONTIN 300 MG PO ×3 (09:40→21:01)
[2023-05-17] MEDS: NIZORAL 2% CREAM 1 APPLIC TOPICAL ×2 (09:40→19:52)
[2023-05-17] MEDS: LMX 4 1 APPLIC TOPICAL ×2 (09:41→19:53)
[2023-05-17] MEDS: GEODON 80 MG PO ×2 (09:42→19:50)
[2023-05-17] MEDS: DEPAKOTE SPRINKLE 625 MG PO ×2 (09:43→19:49)
[2023-05-17] MEDS: LASIX 40 MG PO (09:48)
[2023-05-17] MEDS: SINEMET 25-100 1 TABLET PO ×3 (09:51→21:01)
[2023-05-17] MEDS: CLARITIN 10 MG PO (11:07)
--- NOTE | 2023-05-17 12:07 | CM ---
Pt is long-term at [facility].He requested to switch to [facility]. Referral placed for both [facility] and [facility] in care port.
LM with Alba at [facility] accepted back .
Will need an ambulance and Medical nec form.
Neuro involved.MRI brain done.
PLAN If bed available at [facility] [place] If not return to [facility]
--- NOTE | 2023-05-17 15:32 | W.PN.HOSP.TC ---
Today's Communication/Plan
-
Please see below
Assessment / Plan
Assessment / Plan
Physical Exam
General: Not in acute distress
HEENT: Normocephalic, Atraumatic
Respiratory: Clear to Auscultation Bilaterally
Cardiac: S1/S2 and Regular Rhythm
GI: Soft, Non Tender, Non Distended and Normal Bowel Sounds
Musculoskeletal: No Cyanosis and No Edema
Skin: Warm. Dry.
Neuro: Dysarthria, Facial Droop and Other (right facial droop, bilateral lower extremity weakness and numbness)

Assessment/Plan
# Syncopal episode - after urination sitting down on the toilet - and left-sided weakness
# Dysarthria - most likely secondary to chronic conditions may be related to parkinsonism or a functional neurologic disorder
# 7 mm basilar tip aneurysm/asymptomatic basilar artery aneurysm
-Continue Aspirin 81 mg daily
-Patient with significant right-sided facial and dysarthria as well as motor deficits
-NIH score of 10 on admission/presentation
-CT head no acute abnormality
-CTA head and neck no significant vascular occlusion or dissection but shows 7 mm basilar tip aneurysm
-ER spoke with neurology who recommended against TNK given aneurysm
-300 mg rectal aspirin given, continue daily
-MRI Brain with no acute changes
-Neurochecks/NIH checks
-Speech therapist: on 05/16/23, recommended regular solids and thin liquids, they will follow patient
-Neurology consulted, recommendations appreciated
-Patient needs nonurgent neurosurgical/endovascular neurology evaluation of the basilar artery aneurysm - neurology discussed with patient signs of severe sudden onset headache which should prompt immediate 911 seeking medical attention/EMS
-Continue usual Valproic Acid and Sinemet
-Check orthostatic vital signs
# Left Eye Redness and Pain
-Consulted and discussed case with Dr. Nuvia Zhong, she will see patient, evaluation and recommendations appreciated
History of Cerebrovascular Accident
Parkinson's disease
-Continue Carbidopa-levodopa
Seizure disorder
-Continue home Depakote
History of psychotic disorder
Schizophrenia
-Continue home medications
History of conversion disorder
Essential hypertension
GERD
-Continue omeprazole
Hypercholesterolemia
-Continue statin
Hypothyroidism
-Continue levothyroxine
Psoriasis
-Continue steroid cream
Chronic kidney disease
-Renal function at baseline
Chronic venous insufficiency
-Continue home Lasix
Dexamethasone
-Unclear why takes his; continue
Valacyclovir
-Unclear why takes this; continue
History of Lower Extremity Wounds
History of Psoriasis?
Obesity Class 3
Full code
DVT prophylaxis-SCDs
May 17, 2023: I tried calling patient's sister Nkechi earlier today, but she did not answer her phone.
Anticipated Discharge: 24 - 48 hours
Subjective/Interval History
-
Date of Service: May 17, 2023
Patient was seen and examined. He was trying to eat his lunch when he was seen. He reports left eye redness and pain.
Objective Data
-
Vital Signs:
Vital Signs
Temp Pulse Resp BP Pulse Ox
98.1 F 76 20 144/78 96
05/17/23 15:11 05/17/23 15:11 05/17/23 15:11 05/17/23 15:11 05/17/23 15:11
I&O
05/16/23 05/17/23 05/18/23
06:59 06:59 06:59
Intake Total 1010 / 1010 2760 / 2760
Output Total 1800 / 1800
Balance 1010 / 1010 960 / 960
--- NOTE | 2023-05-17 16:31 | PTCARENOTE ---
Patient with red L eye this shift and complaints of being itchy. PRN Claritin given for allergies see [facility]IS[facility]. Dr. Flores aware and consulted ophthalmology.
[2023-05-17 18:53] LABS: Hematocrit 33.8 % (39.0-52.0); Hemoglobin 10.8 g/dL (13.0-18.0); Mean Corpuscular Hgb 26.6 pg (27.0-31.0); Mean Corpuscular Volume 83.3 fL (80.0-94.0); Mean Platelet Volume 9.3 fL (7.4-10.4); Platelet Count 191 10^3/uL (130-400); Red Blood Cell Count 4.06 10^6/uL (4.70-6.10); Red Cell Dist. Width 14.7 % (11.5-14.5)
[2023-05-17 19:08] LABS: Blood Urea Nitrogen 31 mg/dl (9-20); Carbon Dioxide 29 mmol/L (22-30); Chloride 103 mmol/L (98-107); Estimated Creatinine Clearance 71 ml/min; Glucose 156 mg/dl (70-99); Potassium 4.8 mmol/L (3.5-5.1); Sodium 140 mmol/L (135-145); eGFR 57.18
[2023-05-17] MEDS: LIPITOR 20 MG PO (21:01)
[2023-05-18 03:43] VITALS: BP 157/94
[2023-05-18 04:23] VITALS: BP 151/85
[2023-05-18] MEDS: TYLENOL 650 MG PO (05:38)
[2023-05-18 06:00] VITALS: BMI 41.1
[2023-05-18 07:55] VITALS: BP 132/82
[2023-05-18] MEDS: DECADRON 2 MG PO (08:03)
[2023-05-18] MEDS: SINEMET 25-100 1 TABLET PO ×2 (08:03→15:30)
[2023-05-18] MEDS: LASIX 40 MG PO (08:03)
[2023-05-18] MEDS: NEURONTIN 300 MG PO ×2 (08:04→15:30)
[2023-05-18] MEDS: PROTONIX 40 MG PO (08:04)
[2023-05-18] MEDS: GEODON 80 MG PO (08:04)
[2023-05-18] MEDS: SYNTHROID 25 MCG PO (08:04)
[2023-05-18] MEDS: LOW STRENGTH ASPIRIN 81 MG PO (08:04)
[2023-05-18] MEDS: DEPAKOTE SPRINKLE 625 MG PO (08:04)
[2023-05-18] MEDS: NIZORAL 2% CREAM 1 APPLIC TOPICAL (08:07)
[2023-05-18] MEDS: LMX 4 1 APPLIC TOPICAL (08:07)
[2023-05-18] MEDS: SANTYL OINTMENT 1 APPLIC TOPICAL (08:21)
--- NOTE | 2023-05-18 10:03 | CM ---
digital account manager reviewed patient's chart and met with patient this am and patient is for possible discharge today per physician, patient to return to [facility], patient is agreeable. digital account manager spoke with admissions at [facility] and
they can accept patient today.
Plan; [facility] skilled today by ambulance.
[facility]
Report [phone]
--- NOTE | 2023-05-18 14:22 | W.PN.HOSP.TC ---
Today's Communication/Plan
-
Discharge today
Assessment / Plan
Assessment / Plan
Physical Exam
General: Not in acute distress
HEENT: Normocephalic, Atraumatic
Respiratory: Clear to Auscultation Bilaterally
Cardiac: S1/S2 and Regular Rhythm
GI: Soft, Non Tender, Non Distended and Normal Bowel Sounds
Musculoskeletal: No Cyanosis and No Edema
Skin: Warm. Dry.
Neuro: Dysarthria - IMPROVED - otherwise cranial nerves 2 through 12 grossly intact. Strength in bilateral upper extremities 5/5 and strength in bilateral lower extremities 4/5. Sensation grossly intact.

Assessment/Plan
# Syncopal episode - after urination sitting down on the toilet - and left-sided weakness
# Dysarthria - most likely secondary to chronic conditions may be related to parkinsonism or a functional neurologic disorder
# 7 mm basilar tip aneurysm/asymptomatic basilar artery aneurysm
-Continue Aspirin 81 mg daily
-Patient with significant right-sided facial and dysarthria as well as motor deficits
-NIH score of 10 on admission/presentation
-CT head no acute abnormality
-CTA head and neck no significant vascular occlusion or dissection but shows 7 mm basilar tip aneurysm
-ER spoke with neurology who recommended against TNK given aneurysm
-300 mg rectal aspirin given, continue daily
-MRI Brain with no acute changes
-Neurochecks/NIH checks
-Speech therapist: on 05/16/23, recommended regular solids and thin liquids, they will follow patient
-Neurology consulted, recommendations appreciated
-Patient needs nonurgent neurosurgical/endovascular neurology evaluation of the basilar artery aneurysm - neurology discussed with patient signs of severe sudden onset headache which should prompt immediate 911 seeking medical attention/EMS
-Continue usual home Divalproex 625mg PO BID and home Sinemet 25-100 TID
-Continue home Simvastatin 40 mg HS
-Check orthostatic vital signs outpatient
# Left Eye Redness and Pain - IMPROVED
-Consulted and discussed case with Dr. Nuvia Zhong who mentioned that patient has a small conjunctival laceration (which is very superficial and won't require repair) and that patient refused any dilation or any further antibiotic drops or
ointment, but patient was willing to try cool compress for comfort.
-Follow-up with ophthalmology outpatient
History of Cerebrovascular Accident
Parkinson's disease
-Continue Carbidopa-levodopa
Seizure disorder
-Continue home Depakote
History of psychotic disorder
Schizophrenia
-Continue home medications
-Follow-up with outpatient psychiatry
History of conversion disorder
Essential hypertension
GERD
-Continue omeprazole
Hypercholesterolemia
-Continue statin
Hypothyroidism
-Continue levothyroxine
Psoriasis
-Continue steroid cream
Chronic kidney disease
-Renal function at baseline
Chronic venous insufficiency
-Continue home Lasix
Dexamethasone
-Unclear why takes his; continue
Valacyclovir
-Unclear why takes this; continue
History of Lower Extremity Wounds
History of Psoriasis?
Obesity Class 3
Full code
DVT prophylaxis-SCDs
May 17, 2023: I tried calling patient's sister Nkechi earlier today, but she did not answer her phone.
May 18, 2023: I tried calling again patient's sister Nkechi earlier today, but she did not answer her phone.
More than 30 minutes spent in discharge including
Final examination of the patient
Summarizing hospital stay
Instructions for continuing care to all relevant caregivers
Preparation of discharge records, prescriptions, and referral forms
Total time spent (in minutes): 38
Anticipated Discharge: Today
Subjective/Interval History
-
Date of Service: May 18, 2023
Patient was seen and examined. His speech appeared to be better today, he can move his legs and really raise them up over the bed. He reported no new symptoms or complaints.
Objective Data
-
Vital Signs:
Vital Signs
Temp Pulse Resp BP Pulse Ox
98 F 70 18 132/80 96
05/18/23 07:55 05/18/23 08:03 05/18/23 07:55 05/18/23 08:03 05/18/23 08:00
I&O
05/17/23 05/18/23 05/19/23
06:59 06:59 06:59
Intake Total 2760 / 2760 3120 / 3120
Output Total 1800 / 1800 6700 / 6700
Balance 960 / 960 -3580 / -3580
[2023-05-18 15:29] VITALS: BP 146/88
--- NOTE | 2023-05-18 15:37 | W.DS.TRANS ---
DC Summary - Director Digital Catalogue
-
Discharge Instructions:
Discharge Diagnosis/Procedures Syncopal episode - after urination sitting down
on the toilet - and left-sided weakness
Dysarthria - most likely secondary to chronic
conditions may be related to parkinsonism or a
functional neurologic disorder
7 mm basilar tip aneurysm/asymptomatic basilar
artery aneurysm
Left Eye Redness and Pain - IMPROVED
History of Cerebrovascular Accident
Parkinson's disease
Seizure disorder
History of psychotic disorder
Schizophrenia
History of conversion disorder
Essential hypertension
GERD
Hypercholesterolemia
Hypothyroidism
Psoriasis
Chronic kidney disease
Chronic venous insufficiency
Dexamethasone
Valacyclovir
History of Lower Extremity Wounds
History of Psoriasis?
Obesity Class 3
Diet Low Fat,Low Cholesterol
Activity As tolerated
Driving Restrictions No driving
Other Services PT,OT
Instructions: Brain aneurysm
Brain Aneurysm (DC)
Stand-Alone Forms:
Changes to Home Medications: Yes
Discharge Medications:
DC Medications w/original date entered in [facility]
acetaminophen 325 mg tablet 650 mg PO Q6H PRN Mild pain/Temp>100 07/26/21
bisacodyl 10 mg rectal suppository (OneLAX Bisacodyl) 10 mg [place] DAILY PRN If MOM ineffective 07/26/21
divalproex 125 mg capsule,delayed release sprinkle 625 mg PO BID Neurological Condition 07/26/21
furosemide 40 mg tablet (Lasix) 40 mg PO DAILY Fluid Retention/Swelling 07/26/21
loratadine 10 mg tablet (Claritin) 10 mg PO DAILY PRN allergies 07/26/21
magnesium hydroxide 400 mg/5 mL oral suspension 30 ml PO DAILY PRN if no bm x 3 days 07/26/21
omeprazole 20 mg capsule,delayed release 20 mg PO BID Gastrointestinal Issue 07/26/21
ziprasidone HCl 80 mg capsule (Geodon) 80 mg PO BID Mental Health/Anxiety 07/26/21
carbidopa 25 mg-levodopa 100 mg tablet 1 tab PO TID Neurological Condition 09/10/22
gabapentin 300 mg capsule 300 mg PO TID Neurological Condition 09/10/22
ketoconazole 2 % topical cream 1 applic topical BID Skin Issues 09/10/22
levothyroxine 25 mcg tablet (Synthroid) 25 mcg PO DAILY Thyroid 09/10/22
lidocaine 4 % topical cream 1 applic topical BID Pain 09/10/22
menthol 4 % topical gel (Biofreeze (menthol)) 1 applic topical Q6H PRN topical pain 09/10/22
simvastatin 40 mg tablet 40 mg PO HS High Cholesterol 09/10/22
Robitussin Severe Day/Night 10 ml PO Q6H PRN cough 11/27/22
diclofenac sodium 1 % topical gel 1 ea topical DAILY Pain 11/27/22
lidocaine HCl 10 mg/mL (1 %) injection solution 2 ml IM ONCE PRN low back pain 11/27/22
albuterol sulfate 90 mcg/actuation aerosol inhaler 2 puff inhalation R Q6 PRN sob/wheezing/cough 05/15/23
benzocaine 15 mg-menthol 2.6 mg lozenges (Cepacol Sore Throat (benzocaine-menthol)) 1 evaristo mucous membrane Q2H PRN pharyngitis 05/15/23
clobetasol 0.05 % topical ointment 1 applic topical QPM Skin Issues 05/15/23
collagenase clostridium histo. 250 unit/gram topical ointment (Santyl) 1 applic topical DAILY Skin Issues 05/15/23
dexamethasone 2 mg tablet 2 mg PO DAILY Anti-Inflammatory 05/15/23
ergocalciferol (vitamin D2) 1,250 mcg (50,000 unit) capsule (Vitamin D2) 1,250 mcg PO QMONTH Supplement 05/15/23
valacyclovir 1 gram tablet 1,000 mg PO Q12H Infection 05/15/23
aspirin 81 mg chewable tablet (Children's Aspirin) 81 mg PO DAILY #30 tabs 05/18/23
Home Medication Changes
New Medication is Aspirin
Holding Valacyclovir until outpatient follow-up
Stopped Enema, Mucinex D amd triamcinolone
Pending Results: No
Total time spent discharging patient (in min): 38
--- NOTE | 2023-05-20 09:09 | W.DCSUMMARY ---
Discharge Summary
Discharge Data
Date of Admission: 05/15/23
Date of Discharge: 05/18/23
Total time spent discharging patient (in min): 38
-
Pending Results: No
Hospital Course
62-year-old male with past medical history of Parkinson's disease, seizure disorder, psychotic disorder, cerebrovascular accident, hypertension, gastroesophageal reflux disease, hyperglycemia, hypothyroidism, psoriasis, hyperlipidemia and chronic
kidney disease presented after being found on the floor of his bathroom from a syncopal episode 7:30 PM. He had slurred speech and right-sided weakness as per EMS. Patient was initially kept N.P.O. byt later was able to be switched to regular diet
with conditions, as per speech therapy. CT head showed no acute abnormality, CTA head and neck showed no significant vascular occlusion or dissection but showed 7 mm to 8 mm basilar tip aneurysm, and the emergency room provider spoke with neurology
who recommended against TNK given aneurysm. MRI of the brain showed no acute infarction but did show a chronic left basal ganglia lacunar infarction. Patient was noted to have dysarthria, global bradykinesia and Parkinsonism.
Neurology mentioned that from their standpoint, the most likely cause of patient's symptoms was vasovagal syncope from urination with subsequent hypoperfusion of the brain with syncope on top of the chronic left basal ganglia infarction, most likely
leading to the transient right arm and leg weakness and speech difficulty. Neurology also mentioned that patients with Parkinson's Disease can have fluctuations in speech abnormalities due to metabolic or medication causes - so that was another
possibility - and it was unlikely this event was a transient ischemic attack given patient's syncope. Patient was started on Aspirin 81 mg daily which was safe to take for now in the setting of his brain aneurysm.
Patient's left eye was red and painful - wood casket assembler was consulted and mentioned that patient had conjunctival laceration of the left eye - it was recommended that patient use/get cool compress for comfort; it was also recommended patient use
ointment or antibiotic drops (but the patient refused any more eye drops).
Patient would have to follow-up very closely with a neurosurgeon/neurology/interventional physician for his basilar artery aneurysm (which was asymptomatic during the hospitalization).
Patient was stable for discharge.
Discharge Plan
-
Patient Disposition: Prison/SNF
Discharge Diagnosis/Procedures: Syncopal episode - after urination sitting down on the toilet - and left-sided weakness
Dysarthria - most likely secondary to chronic conditions may be related to parkinsonism or a functional neurologic disorder
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
Left Eye Redness and Pain - IMPROVED
History of Cerebrovascular Accident
Parkinson's disease
Seizure disorder
History of psychotic disorder
Schizophrenia
History of conversion disorder
Essential hypertension
GERD
Hypercholesterolemia
Hypothyroidism
Psoriasis
Chronic kidney disease
Chronic venous insufficiency
Dexamethasone
Valacyclovir
History of Lower Extremity Wounds
History of Psoriasis?
Obesity Class 3
Condition: Fair
Diet: Low Fat and Low Cholesterol
Activity: As tolerated
Driving Restrictions: No driving
Other Services: PT and OT
Activity Restrictions/Additional Instructions:
PATIENT WILL NEED CONTINUED SPEECH THERAPY FOR DYSARTHRIA
If there are signs of severe sudden onset headache, new weakness, numbness or tingling, should call 911 immediately (given patient has an aneurysm)
Check orthostatic vital signs
Wound Care Instructions Bilateral LE wounds- Clean with Vashe moistened gauze for 5 minutes. Apply adaptic and ABD and wrap with lauryn. Change Daily and PRN if soiled.
Bilateral MOOK wraps, reapply daily
Apply Moisturizing Cream to LE daily
Keep heels off-loaded with pillows under calves
Frequent continence care
Follow with wound care provider at your facility
Instructions: Brain aneurysm, Brain Aneurysm (DC)
Referrals:
Miguel Farias DO [Active] - in less than 1 week (Basilar artery aneurysm - asymptomatic - needs neurointerventional evaluation to address whether or not to pursue treatment of this aneurysm)
Terry Borden DO [Family Provider] - in less than 1 week
Jose Manuel Locke MD [Active] - in less than 1 week (Basilar artery aneurysm - asymptomatic - needs neurointerventional evaluation to address whether or not to pursue treatment of this aneurysm (a referral to neurosurgery to Dr. Farias was also
placed))
Nuvia Zhong MD [Active] - in less than 1 week (Follow-up of conjunctival laceration)
Sukhwinder Chance MD [Active] - in two to four weeks (Follow-up of schizophrenia)
Prescriptions:
New
aspirin [Children's Aspirin] 81 mg Tablet,Chewable
81 mg PO DAILY Qty: 30 1RF
Continued
loratadine [Claritin] 10 mg Tablet
10 mg PO DAILY PRN (Reason: allergies)
ziprasidone HCl [Geodon] 80 MG capsule
80 mg PO BID
furosemide [Lasix] 40 MG tablet
40 mg PO DAILY
divalproex 125 MG capsule, delayed rel sprinkle
625 mg PO BID
omeprazole 20 MG capsule,delayed release(DR/EC)
20 mg PO BID
acetaminophen 325 MG tablet
650 mg PO Q6H MDD 3000 MG PRN (Reason: Mild pain/Temp>100)
magnesium hydroxide 30 ML suspension
30 ml PO DAILY PRN (Reason: if no bm x 3 days)
bisacodyl [OneLAX Bisacodyl] 10 MG suppository
10 mg [place] DAILY PRN (Reason: If MOM ineffective)
lidocaine 4 % Cream
1 applic TOPICAL BID
Rx Instructions:
apply to back
levothyroxine [Synthroid] 25 mcg Tablet
25 mcg PO DAILY
gabapentin 300 mg Capsule
300 mg PO TID
carbidopa-levodopa 25-100 mg Tablet
1 tab PO TID
ketoconazole 2 % Cream
1 applic TOPICAL BID
Rx Instructions:
Apply to Face and Ears
Biofreeze (menthol) 4 % Gel
1 applic TOPICAL Q6H PRN (Reason: topical pain)
Rx Instructions:
apply to affected area/ b/l arm
simvastatin 40 mg Tablet
40 mg PO HS
lidocaine HCl 10 mg/mL (1 %) Solution
2 ml IM ONCE PRN (Reason: low back pain)
Rx Instructions:
Administration by MD only
diclofenac sodium 1 % Gel
1 ea TOPICAL DAILY
Rx Instructions:
Left Shoulder Pain
Robitussin Severe Day/Night
10 ml PO Q6H PRN (Reason: cough)
dexamethasone 2 mg tablet
2 mg PO DAILY
ergocalciferol (vitamin D2) [Vitamin D2] 1,250 mcg (50,000 unit) Capsule
1,250 mcg PO QMONTH
clobetasol 0.05 % ointment
1 applic TOPICAL QPM
Rx Instructions:
apply to lower leg, left arm
Santyl 250 unit/gram Ointment
1 applic TOPICAL DAILY
Rx Instructions:
apply to RLE, LLE for wound care
albuterol sulfate 90 mcg/actuation Hfa Aerosol Inhaler
2 puff INHALATION R Q6 PRN (Reason: sob/wheezing/cough)
Cepacol Sore Throat (mohini-men) 15-2.6 mg Lozenge
1 evaristo MUCOUS MEMBRANE Q2H PRN (Reason: pharyngitis)
Held
valacyclovir 1 gram tablet
1,000 mg PO Q12H
Hold Instructions: Resume on 05/21/23. Discuss with your outpatient physican before resuming this medication.
Rx Instructions:
for 1 days
Discontinued
Enema 135 ML enema
118 ml RC DAILY PRN (Reason: if dulcolax ineffective)
triamcinolone acetonide 40 mg/mL Suspension
40 mg IM PRN PRN (Reason: lower back pain)
Rx Instructions:
administered by MD only
pseudoephedrine-guaifenesin [Mucinex D] 60-600 mg Tablet Extended Release 12 Hr
1 tab PO TID
Discharge Orders:
Discharge Patient (As Directed); Ordered 05/18/23
Ordered By: Dewey Galicia
Discharge Date and Time
Discharge Date/Time: 05/18/23 18:09
== END 2023-05-18 18:09 | DRG 65 ==
LOC: 4 EAST ACU 23:39
PROVIDERS: Emergency Medicine; ADMITTING PHYSICIAN Hospitalist; ATTENDING PHYSICIAN Hospitalist; CONSULT PHYSICIAN Ophthalmology; CONSULT PHYSICIAN Student in an Organized Health Care Education/Training Program; EMERGENCY PHYSICIAN Emergency Medicine; FAMILY PHYSICIAN Student in an Organized Health Care Education/Training Program
DX: I63.81 Other cerebral infarction due to occlusion or stenosis of small artery (principal); Z68.41 Body mass index [BMI] 40.0-44.9, adult; R55 Syncope and collapse; E03.9 Hypothyroidism, unspecified; E78.00 Pure hypercholesterolemia, unspecified; N18.9 Chronic kidney disease, unspecified; I12.9 Hypertensive chronic kidney disease with stage 1 through stage 4 chronic kidney disease, or unspecified chronic kidney disease; K21.9 Gastro-esophageal reflux disease without esophagitis; G20.A1 Parkinson's disease without dyskinesia, without mention of fluctuations; R47.1 Dysarthria and anarthria; F10.91 Alcohol use, unspecified, in remission; R53.1 Weakness; H57.12 Ocular pain, left eye; G40.909 Epilepsy, unspecified, not intractable, without status epilepticus; H26.9 Unspecified cataract; F20.9 Schizophrenia, unspecified; R73.9 Hyperglycemia, unspecified; L40.9 Psoriasis, unspecified; F44.9 Dissociative and conversion disorder, unspecified; E66.01 Morbid (severe) obesity due to excess calories; I87.2 Venous insufficiency (chronic) (peripheral); G62.9 Polyneuropathy, unspecified; I72.5 Aneurysm of other precerebral arteries; Z79.52 Long term (current) use of systemic steroids; Z87.891 Personal history of nicotine dependence; Z79.890 Hormone replacement therapy; Z86.73 Personal history of transient ischemic attack (TIA), and cerebral infarction without residual deficits; Z79.82 Long term (current) use of aspirin
CPT/HCPCS: 70450; 70496; 70498; 70551; 71045; 80048; 80053; 80061; 80164; 83036; 84484; 85025; 85027; 85610; 85730; 92507; 92523; 92610; 93005; 96365; 97163; 97166; 97530; 97535; 99291; Q9967

== ENCOUNTER 2023-11-26 11:05 | Emergency (ER) | payer MEDICARE, OTHER, SELFPAY ==
[2023-11-26 11:09] VITALS: BP 152/92
[2023-11-26 11:10] VITALS: BP 152/92
--- NOTE | 2023-11-26 11:22 | ED.GENMED ---
History of Present Illness
General
Chief Complaint: Abdominal Pain
Source: patient and ambulance crew
Exam Limitations: none
Time Seen by Provider: 11/26/23 11:12
Nursing documentation reviewed up to this point in time: agreed with
History of Present Illness
History of Present Illness:
63-year-old male presents to the emergency department complaining of diffuse abdominal pain ongoing for several weeks, but worse today.
Past History
Past History
ED Past Medical History: CVA, GERD, HTN, Hypercholesterolemia, Hypothyroidism and Other (Parkinsons)
ED Past Surgical History: None
Social History
Tobacco: Former smoker
Alcohol: None
Personal:
Living: care home
Review of Systems
Review of Systems
Allergies reviewed?: Yes
All Other Systems: Not applicable
Constitutional: Reports no symptoms
EENT: Reports no symptoms
Respiratory: Reports no symptoms
Cardiac: Reports no symptoms
ABD/GI: Reports abdominal pain and vomiting
: Reports no symptoms
Musculoskeletal: Reports no symptoms
Skin: Reports no symptoms
Neurological: Reports no symptoms
Endocrine: Reports no symptoms
Hematologic/Lymphatic: Reports no symptoms
Psychiatric: Reports no symptoms
Phy Exam
Physical Exam
Physical Exam:
Physical Exam
General: no apparent distress, not acutely ill
Neck: supple. no meningeal signs. normal posterior pharynx
Heart: s1/s2 regular rate and rhythm, no murmur. equal radial
pulses.
HEENT: Pupils equal round reactive to light, EOMI
Lungs: no acute respiratory distress. clear bilaterally
Abdomen: normal bowel sounds. Diffuse abdominal tenderness. No rebound or guarding. No CVAT
Neuro: alert and oriented. no focal neurological deficits cranial nerves II through XII intact
Skin: no rash
Psychiatric: well kept. interactive and cooperative
Extremities: no edema. no calf tenderness. negative homans. good distal pulses
Course
Orders/Labs/Results
Orders:
Orders
11/26/23 11:13
Electrocardiogram (*1) Urgent
Reason for Study: Chest Pain
11/26/23 11:14
EKG- Treatment ONCE
11/26/23 11:17
Complete Blood Count/With Diff Urgent
Comprehensive Metabolic Panel Urgent
Lactate Level [Lactic Acid] Urgent
Lipase Urgent
Troponin I Urgent
11/26/23 11:18
Urine Culture Reflexed from UA [Urinalysis Reflex To Culture] Urgent
Date Specimen was Collected: 11/26/23
Time Specimen was Collected: 11:18
Urine Microscopic Reflex Cult Urgent
11/26/23 11:20
CT Abd/pelvis W Iv Cont Urgent
Comment:
Reason For Exam: diffuse abdominal pain
IV Insert/Care/Rem.- Treatment PRN
Abnormal Lab Results
11/26/23 11/26/23
11:17 11:18
MCH 26.4 L pg
(27.0-31.0)
MCHC 31.7 L g/dL
(33.0-37.0)
RDW 15.6 H %
(11.5-14.5)
Plt Count 108 L 10^3/uL
(130-400)
MPV 10.5 H fL
(7.4-10.4)
Absolute Lymphs (auto) 0.9 L 10^3/uL
(1.2-3.4)
Neutrophils % 76.9 H %
(42.2-75.2)
Lymphocytes % 14.1 L %
(20.5-51.1)
BUN 24 H mg/dl
(9-20)
Glucose 100 H mg/dl
(70-99)
Urine Albumin (Reflex) 1+ A
(Neg - Trace)
11/26/23 11:17
11/26/23 11:17
Vital Signs
Initial and Last Documented VS:
Initial Vital Signs
Temp Pulse Resp BP
98.7 F 76 22 152/92
11/26/23 11:09 11/26/23 11:09 11/26/23 11:09 11/26/23 11:09
Last Documented Vital Signs
Temp Pulse Resp BP Pulse Ox
98.7 F 63 28 152/92 96
11/26/23 11:09 11/26/23 11:45 11/26/23 11:45 11/26/23 11:10 11/26/23 12:06
MDM/Problems Addressed
Differential Diagnosis Includes:
Bowel obstruction, diverticulitis
MDM/Problems Addressed:
63-year-old male with diffuse abdominal pain, unclear etiology. Do not suspect diverticulitis, ischemic colitis or appendicitis. Stable for discharge.
Chronic conditions affecting care: HTN
Acute Exacerbation and/or Progression of Chronic Illness: HTN
*Radiology
Radiology exam reviewed: radiology read reviewed (CT abdomen pelvis no acute findings)
*Pulse Oximetry
Patient hypoxic: no
*EKG
Interpreted by ED Provider?: Yes
EKG Intrepretation Date: 11/26/23
EKG Intrepretation Time: 11:28
Interpretation: normal
Comparison EKG: no changes
Heart Rate: 64
Rate: normal
Rhythm: sinus
Mcallen: normal axis
Interval: normal interval
QRS Pattern: normal QRS
Ischemia: no ischemia
*Die Press Operator Interpretation
Rate: normal
Interpretation: normal
Heart Rate: 66
Rhythm: sinus
*Critical Care Note
Total Time (30-74mins, 75-104mins- exclusive of procedures): Not Applicable
Patient Management
Social determinants of health affecting care: Living situation
Escalation/DeEscalation of care consider admission/obs:
Admit not indicated
ED Attending Note
-
Portions of this chart may have been created with voice recognition software.� Occasional wrong word or��sound alike� substitutions may have occurred due to the inherent limitations of voice recognition software.
Discharge Plan
Departure
Patient Disposition: Custodial/SNF
Date of Disposition: 11/26/23
Time of Disposition: 13:02
Patient with high blood pressure during this ER visit?: Yes
Condition: Good
Discharge Problem:
Abdominal pain
Instructions: Abdominal Pain, BLOOD PRESSURE
Prescriptions:
No Action
loratadine [Claritin] 10 mg Tablet
10 mg PO DAILY PRN (Reason: allergies)
ziprasidone HCl [Geodon] 80 MG capsule
80 mg PO BID
furosemide [Lasix] 40 MG tablet
40 mg PO DAILY
divalproex 125 MG capsule, delayed rel sprinkle
625 mg PO BID
omeprazole 20 MG capsule,delayed release(DR/EC)
20 mg PO BID
acetaminophen 325 MG tablet
650 mg PO Q6H MDD 3000 MG PRN (Reason: Mild pain/Temp>100)
magnesium hydroxide 30 ML suspension
30 ml PO DAILY PRN (Reason: if no bm x 3 days)
bisacodyl [OneLAX Bisacodyl] 10 MG suppository
10 mg [place] DAILY PRN (Reason: If MOM ineffective)
lidocaine 4 % Cream
1 applic TOPICAL BID
Rx Instructions:
apply to back
levothyroxine [Synthroid] 25 mcg Tablet
25 mcg PO DAILY
gabapentin 300 mg Capsule
300 mg PO TID
carbidopa-levodopa 25-100 mg Tablet
1 tab PO TID
ketoconazole 2 % Cream
1 applic TOPICAL BID
Rx Instructions:
Apply to Face and Ears
Biofreeze (menthol) 4 % Gel
1 applic TOPICAL Q6H PRN (Reason: topical pain)
Rx Instructions:
apply to affected area/ b/l arm
simvastatin 40 mg Tablet
40 mg PO HS
lidocaine HCl 10 mg/mL (1 %) Solution
2 ml IM ONCE PRN (Reason: low back pain)
Rx Instructions:
Administration by MD only
diclofenac sodium 1 % Gel
1 ea TOPICAL DAILY
Rx Instructions:
Left Shoulder Pain
Robitussin Severe Day/Night
10 ml PO Q6H PRN (Reason: cough)
valacyclovir 1 gram tablet
1,000 mg PO Q12H
Rx Instructions:
for 1 days
dexamethasone 2 mg tablet
2 mg PO DAILY
ergocalciferol (vitamin D2) [Vitamin D2] 1,250 mcg (50,000 unit) Capsule
1,250 mcg PO QMONTH
clobetasol 0.05 % ointment
1 applic TOPICAL QPM
Rx Instructions:
apply to lower leg, left arm
Santyl 250 unit/gram Ointment
1 applic TOPICAL DAILY
Rx Instructions:
apply to RLE, LLE for wound care
albuterol sulfate 90 mcg/actuation Hfa Aerosol Inhaler
2 puff INHALATION R Q6 PRN (Reason: sob/wheezing/cough)
Cepacol Sore Throat (mohini-men) 15-2.6 mg Lozenge
1 evaristo MUCOUS MEMBRANE Q2H PRN (Reason: pharyngitis)
aspirin [Children's Aspirin] 81 mg Tablet,Chewable
81 mg PO DAILY Qty: 30 1RF
Referrals:
Terry Borden DO [Family Provider] - Call in 1-3 days for appt
Interventions
Interventions:
*Risk Screen - Suicide Last Done: 11/26/23 11:09
*General Assessment Last Done: 11/26/23 11:09
*Neglect/Abuse Screening Last Done: 11/26/23 11:09
*ED COVID-19 Vaccine History Last Done: 11/26/23 11:09
HD-Thfgwq-Xrblyrlcet Assessment Last Done: 11/26/23 11:20
Discharge Date and Time
Print Language: OCCITAN
[2023-11-26 11:33] LABS: % Basophils 0.3 % (0-2); % Eosinophils 0.9 % (0-6); % Immature Granulocytes 0.5 % (0-0.5); % Lymphocytes 14.1 % (20.5-51.1); % Monocytes 7.3 % (1.7-9.3); % Neutrophils 76.9 % (42.2-75.2); Absolute Eosinophils 0.1 10^3/uL (0-0.7); Absolute Lymphocytes 0.9 10^3/uL (1.2-3.4); Absolute Monocytes 0.5 10^3/uL (0.1-0.6); Absolute Neutrophils 5.1 10^3/uL (1.4-6.5); Hematocrit 42.3 % (39.0-52.0); Hemoglobin 13.4 g/dL (13.0-18.0); Mean Corp Hgb Conc. 31.7 g/dL (33.0-37.0); Mean Corpuscular Hgb 26.4 pg (27.0-31.0); Mean Corpuscular Volume 83.4 fL (80.0-94.0); Mean Platelet Volume 10.5 fL (7.4-10.4); Nucleated Red Blood Cells % 0 % (-); Platelet Count 108 10^3/uL (130-400); Red Blood Cell Count 5.07 10^6/uL (4.70-6.10); Red Cell Dist. Width 15.6 % (11.5-14.5); White Blood Cell Count 6.6 10^3/uL (4.8-10.8)
[2023-11-26 11:35] LABS: Urine Albumin 1+ (Neg - Trace); Urine Bilirubin Negative (Negative); Urine Character Clear (Clear); Urine Color Yellow; Urine Glucose Negative (Negative); Urine Ketone Negative (Negative); Urine Leukocyte Negative (Negative); Urine Nitrite Negative (Negative); Urine Occult Blood Negative (Negative); Urine Specific Gravity 1.005 (<1.030); Urine Urobilinogen Negative (Neg - 1+)
[2023-11-26 11:40] LABS: Lactic Acid 0.8 mmol/L (0.7-2.0)
[2023-11-26 11:41] LABS: ALT (SGPT) < 10 U/L (0-50); AST (SGOT) 20 U/L (17-59); Albumin 4.3 g/dl (3.5-5.0); Alkaline Phosphatase 91 U/L (38-126); Blood Urea Nitrogen 24 mg/dl (9-20); Calcium 9.9 mg/dl (8.4-10.2); Carbon Dioxide 28 mmol/L (22-30); Chloride 105 mmol/L (98-107); Glucose 100 mg/dl (70-99); Lipase 76 U/L (23-300); Sodium 142 mmol/L (135-145); Total Bilirubin 0.5 mg/dl (0.2-1.3); Total Protein 7.2 g/dl (6.3-8.2); eGFR > 60.00
[2023-11-26 11:52] LABS: Troponin I < 0.012 ng/ml
[2023-11-26 12:55] LABS: Urine Red Blood Cell 0-2 /HPF (0-2); Urine White Cell 0-2 /HPF (0-5)
[2023-11-26 13:02] VITALS: BP 142/94
[2023-11-26 14:00] VITALS: BP 133/88
== END 2023-11-26 15:56 ==
LOC: EMR 11:05
PROVIDERS: EMERGENCY PHYSICIAN Emergency Medicine; FAMILY PHYSICIAN Student in an Organized Health Care Education/Training Program
DX: R10.9 Unspecified abdominal pain (principal); I10 Essential (primary) hypertension; Z87.891 Personal history of nicotine dependence
CPT/HCPCS: 99285; 74177; 80053; 81003; 81015; 83605; 83690; 84484; 85025; 93005; Q9967

== ENCOUNTER 2024-09-22 18:53 | Inpatient (IN) | payer MEDICARE, OTHER, SELFPAY ==
[2024-09-22 16:04] VITALS: BP 122/76; BMI 37.4
[2024-09-22 16:25] LABS: Hematocrit 33.0 % (39.0-52.0); Hemoglobin 10.0 g/dL (13.0-18.0); Mean Corp Hgb Conc. 30.3 g/dL (33.0-37.0); Mean Corpuscular Volume 85.7 fL (80.0-94.0); Nucleated Red Blood Cells % 0 % (-); Platelet Count 153 10^3/uL (130-400); Red Cell Dist. Width 15.1 % (11.5-14.5)
[2024-09-22 16:38] LABS: ALT (SGPT) < 10 U/L (0-50); AST (SGOT) 19 U/L (17-59); Albumin 3.3 g/dl (3.5-5.0); Alkaline Phosphatase 68 U/L (38-126); Blood Urea Nitrogen 32 mg/dl (9-20); Calcium 9.3 mg/dl (8.4-10.2); Carbon Dioxide 31 mmol/L (22-30); Chloride 106 mmol/L (98-107); Estimated Creatinine Clearance 61 ml/min; Glucose 92 mg/dl (70-99); Potassium 4.8 mmol/L (3.5-5.1); Sodium 139 mmol/L (135-145); Total Protein 6.7 g/dl (6.3-8.2); eGFR 51.99
[2024-09-22 17:43] LABS: COVID-19 Antigen Negative (Negative)
--- NOTE | 2024-09-22 18:06 | ED.GENMED ---
History of Present Illness
General
Chief Complaint: Skin Problem
Source: patient and halfway
Exam Limitations: none
Time Seen by Provider: 09/22/24 16:21
History of Present Illness
History of Present Illness:
64-year-old male sent in by the wound care people for progressive wound issues to both lower extremities. Was seen this morning by the photo specialist. Patient complaining of increased pain increased foul-smelling and drainage. Also ongoing
cough that has been for weeks.
Past History
Past History
ED Past Medical History: CVA, GERD, HTN, Hypercholesterolemia, Hypothyroidism and Other (Parkinsons)
ED Past Surgical History: None
Social History
Tobacco: Former smoker
Alcohol: None
Personal:
Living: halfway
Review of Systems
Review of Systems
All Other Systems: Not applicable
Constitutional: Denies fever
Respiratory: Reports no symptoms
Cardiac: Reports no symptoms
ABD/GI: Reports no symptoms
Phy Exam
Physical Exam
Physical Exam:
GENERAL: Alert and oriented in no apparent distress
EYE: Orbits normal.
NECK: Supple
CARDIAC: Regular rate and rhythm without any obvious murmurs.
LUNGS: Clear breath sounds,normal
ABDOMEN: Soft, without focal tenderness or distention
NEUROLOGICAL: Alert and oriented , grossly non-focal
SKIN: Warm and dry, bilateral skin breakdown to both lower extremities foul-smelling erythematous some purulent drainage. Tenderness.
MUSCULOSKELETAL: No edema,no deformity.Good color
PSYCH: Cooperative
Course
Orders/Labs/Results
Orders:
Orders
09/22/24 Breakfast
Cholesterol Lowering
At Your Request: Full Participation
Does patient need a safe tray?: No
Cholesterol Lowering: Sodium, 2 Gram
09/22/24 16:17
Complete Blood Count/With Diff Urgent
Comprehensive Metabolic Panel Urgent
09/22/24 16:32
CXR2 [CR Chest - 2 Views ] Urgent
Comment:
Reason For Exam: Cough
09/22/24 17:20
COVID-19 Antigen Urgent
Source: Nasal Swab
09/22/24 18:08
Piperacillin/Tazo 4.5 Gram [Zosyn] 4.5 gram in 100 ml IV NOW
09/22/24 18:26
Vancomycin [Vancocin] 2,000 mg 0.9% Sodium Chloride 500 ml [Nss] 500 ml IV NOW
09/22/24 18:39
Admit/Transfer Patient As Directed
Co-Sign Provider:
Level of Care: Inpatient admission
Assign to:: Medical/Surgical
Physician / Group: tere benjamin
Diagnosis: cellulitis
Reason for Hospitalization: cellulitis
Expected length of stay greater than two midnights?: Yes
ELOS- Estimated Length of Stay in days: 3
I certify the patient meets the requirements for IP care: Yes
PRN Pain Medication Management As Directed
May give lesser potent ordered pain med per pt: Yes
preference::
Protocol:: Medication orders for pain may be administered in a
manner that supports deferring to patient preference
when the pt is:
- Requesting an ordered lesser potent pain medication.
Least to most potent pain medications are defined
as: acetaminophen < NSAID < tramadol < opioids
(morphine, oxycodone, hydromorphone).
- Requesting a lesser dose of the same medication IF
ORDERED.
- Requesting a less intrusive route of administration
if both routes are prescribed by the provider (PO <
IV).
09/22/24 18:40
Code Status As Directed
Resuscitation Status: Full Code
09/22/24 20:11
Acetaminophen [Tylenol/Feverall] 650 mg RECTAL Q4HPRN PRN
Acetaminophen [Tylenol] 650 mg PO Q4HPRN PRN
Albuterol [ProAIR HFA INHALER] 2 puff INH R Q6HPRN PRN sob/wheezing w/ ambulation
Divalproex Sodium [Depakote Sprinkle] 625 mg PO BID
Tramadol HCl [Ultram] 50 mg PO Q8HPRN PRN moderate pain
09/22/24 20:11
WOUND/OSTOMY CONSULT Routine
Reason for Consult: b/l LE wound
Activity As Directed
Activity Level: Out of Bed-Early Mobility
Intake/ Output As Directed
Frequency: Per unit guidelines
Vital Signs As Directed
Frequency: Per unit guidelines
Pt Eval And Treat Routine
Activity Level: As Tolerated
DX Deep Vein Thrombosis Video Routine
09/22/24 21:00
Ziprasidone [Geodon] 80 mg PO BID
09/22/24 22:00
Atorvastatin [Lipitor] 20 mg PO HS
Carbidopa/Levodopa [Sinemet 25-100] 1 tablet PO TID
Gabapentin [Neurontin] 300 mg PO TID
Melatonin 5 mg PO HS
09/23/24 00:00
Heparin 5,000 units SC Q8
Piperacillin/Tazo 3.375 Gram [Zosyn] 3.375 gram in 50 ml IV Q6H
09/23/24 06:00
BMP [Basic Metabolic Panel] IN AM
Complete Blood Count/No Diff IN AM
Levothyroxine [Synthroid] 25 mcg PO DAILY @ 0600
09/23/24 08:00
Aspirin Chewable [Low Strength Aspirin] 81 mg PO DAILY
Fluoxetine HCl [Prozac] 20 mg PO DAILY
Furosemide [Lasix] 40 mg PO DAILY
HydrALAZINE [Apresoline] 10 mg PO DAILY
09/24/24 06:00
BMP [Basic Metabolic Panel] IN AM
Complete Blood Count/No Diff IN AM
09/25/24 06:00
BMP [Basic Metabolic Panel] IN AM
Complete Blood Count/No Diff IN AM
09/26/24 06:00
BMP [Basic Metabolic Panel] IN AM
Complete Blood Count/No Diff IN AM
Abnormal Lab Results
09/22/24
16:17
RBC 3.85 L 10^6/uL
(4.70-6.10)
Hgb 10.0 L g/dL
(13.0-18.0)
Hct 33.0 L %
(39.0-52.0)
MCH 26.0 L pg
(27.0-31.0)
MCHC 30.3 L g/dL
(33.0-37.0)
RDW 15.1 H %
(11.5-14.5)
Abs Immat Gran (auto) 0.1 H 10^3/uL
(0-0.05)
Absolute Monos (auto) 1.0 H 10^3/uL
(0.1-0.6)
Immature Gran % 0.6 H %
(0-0.5)
Lymphocytes % 15.3 L %
(20.5-51.1)
Monocytes % 11.7 H %
(1.7-9.3)
Eosinophils % 7.5 H %
(0-6)
Carbon Dioxide 31 H mmol/L
(22-30)
BUN 32 H mg/dl
(9-20)
Creatinine 1.5 H mg/dL
(0.7-1.3)
Albumin 3.3 L g/dl
(3.5-5.0)
09/22/24 16:17
09/22/24 16:17
Vital Signs
Initial and Last Documented VS:
Initial Vital Signs
Temp Pulse Resp BP Pulse Ox
98.5 F 69 18 122/76 96
09/22/24 16:04 09/22/24 16:04 09/22/24 16:04 09/22/24 16:04 09/22/24 16:04
Last Documented Vital Signs
Temp Pulse Resp BP Pulse Ox
98.4 F 70 16 150/82 93
09/22/24 20:27 09/22/24 20:27 09/22/24 20:27 09/22/24 20:27 09/22/24 20:27
MDM/Problems Addressed
Differential Diagnosis Includes:
Not having seen these legs before there is significant erythema drainage malodorous. Clearly a chronic component but apparently acute on chronic. Will admit for IV antibiotics and further wound care. Patient in no respiratory distress. Mild
cough. Chest x-ray negative
*Radiology
Radiology exam reviewed: radiology read reviewed (Negative)
*Pulse Oximetry
SaO2: 96
Oxygen Mode of Delivery: Room air
Patient hypoxic: no
*Critical Care Note
Total Time (30-74mins, 75-104mins- exclusive of procedures): Not Applicable
ED Attending Note
-
Portions of this chart may have been created with voice recognition software.� Occasional wrong word or��sound alike� substitutions may have occurred due to the inherent limitations of voice recognition software.
Discharge Plan
Departure
Patient Disposition: Admit
Date of Disposition: 09/22/24
Time of Disposition: 18:08
Presentation/result/management discussed w/ accepting MD/DO: Hospitalist
Discharge Problem:
Chronic wounds both lower extremities, Cellulitis
Interventions
Interventions:
*Risk Screen - Suicide Last Done: 09/22/24 20:31
*General Assessment Last Done: 09/22/24 16:06
*Neglect/Abuse Screening Last Done: 09/22/24 16:06
*ED COVID-19 Vaccine History Last Done: 09/22/24 20:31
*Nursing Disposition Last Done: 09/22/24 20:03
ED-Skin Assessment Last Done: 09/22/24 16:30
Discharge Date and Time
Discharge Date/Time: 09/22/24 20:03
--- NOTE | 2024-09-22 18:20 | HPS.HSE ---
Family Physician
-
Family Physician:
Chief Complaint
-
LE wound
History of Present Illness
64-year-old male With past medical history for hyperlipidemia, hypothyroidism, hypertension, psoriasis, Parkinson disease, seizures, GERD, CVA Presented to us with worsening bilateral lower extremities edema from wound care.Patient complaining of
increased pain increased foul-smelling and drainage. Patient denied any fever, chills, chest pain, short of breath. Patient denied any headache, dizzy or syncope. Patient stated chronic cough. Patient denied any abdominal pain, nausea, vomiting
or diarrhea. Patient denied dysuria hematuria.
Patient received Vanco and Zosyn in ER. Patient is admitting for further management
Medical History
Past Medical History
Past Medical History: Reports Other
Additional Past Medical History:
Left lower extremities ulcers
GERD
Parkinson disease
Psoriasis
Seizure
Hyperlipidemia
Hypothyroidism
Hypertension
CVA
Past Surgical History: Reports Other
Additional Past Surgical History:
Wrist surgery
Social History
Tobacco: Former Smoker
Alcohol: Former
Drug: None
Living: Assisted Living
Family History
Family History: Not pertinent
Allergies / Home Medications
Allergies reflects when Allergies were last updated in [facility].
Home Medications with original date entered in [facility]
Allergy/Medication List:
Allergies
Allergy/AdvReac Type Severity Reaction Status Date / Time
No Known Allergies Allergy Verified 05/15/23 21:36
Home Medications
acetaminophen 325 mg tablet 650 mg PO Q6H PRN Mild pain/Temp>100 07/26/21
divalproex 125 mg capsule,delayed release sprinkle 625 mg PO BID Neurological Condition 07/26/21
furosemide 40 mg tablet (Lasix) 40 mg PO DAILY Fluid Retention/Swelling 07/26/21
ziprasidone HCl 80 mg capsule (Geodon) 80 mg PO BID Mental Health/Anxiety 07/26/21
carbidopa 25 mg-levodopa 100 mg tablet 1 tab PO TID Neurological Condition 09/10/22
gabapentin 300 mg capsule 300 mg PO TID Neurological Condition 09/10/22
levothyroxine 25 mcg tablet (Synthroid) 25 mcg PO DAILY Thyroid 09/10/22
simvastatin 40 mg tablet 40 mg PO HS High Cholesterol 09/10/22
Robitussin Severe Day/Night 10 ml PO Q6H PRN cough 11/27/22
albuterol sulfate 90 mcg/actuation aerosol inhaler 2 puff inhalation R Q6 PRN sob/wheezing/cough 05/15/23
aspirin 81 mg chewable tablet (Children's Aspirin) 81 mg PO DAILY #30 tabs 05/18/23
bisacodyl 10 mg rectal suppository (Dulcolax (bisacodyl)) 10 mg [place] DAILY PRN if MOM ineffective 09/22/24
cholecalciferol (vitamin D3) 1,250 mcg (50,000 unit) capsule 1,250 mcg PO QMONTH 09/22/24
fluoxetine 20 mg capsule (Prozac) 20 mg PO DAILY 09/22/24
guselkumab 100 mg/mL subcutaneous auto-injector (Tremfya) 100 mg SC [id number] 09/22/24
hydralazine 10 mg tablet 10 mg PO DAILY 09/22/24
ibuprofen 400 mg tablet 400 mg PO DAILY 09/22/24
magnesium hydroxide 400 mg/5 mL oral suspension (Milk of Magnesia) 30 ml PO [id number] PRN if no BM x 3 days 09/22/24
melatonin 5 mg tablet 5 mg PO HS 09/22/24
multivitamin (Daily-Ayad tablet) 1 tab PO DAILY 09/22/24
sodium phosphates 19 gram-7 gram/118 mL enema (Fleet Enema) 118 ml [place] DAILYPRN PRN if supp ineffective 09/22/24
tramadol 50 mg tablet 50 mg PO Q8HPRN PRN moderate pain 09/22/24
Review of Systems
-
Constitutional: Reports No Symptoms
EENT: Reports No Symptoms
Respiratory: Reports No Symptoms
Cardiac: Reports No Symptoms
Abdomen/GI: Reports No Symptoms
: Reports No Symptoms
Musculoskeletal: Reports No Symptoms
Skin: Reports Other (Bilateral lower extremities wound)
Neurological: Reports No Symptoms
Endocrine: Reports No Symptoms
Hematologic/Lymphatic: Reports No Symptoms
Psych: Reports No Symptoms
Physical Exam
Vital Signs
Vital Signs
Temp Pulse Resp BP Pulse Ox
98.5 F 69 18 122/76 96
09/22/24 16:04 09/22/24 16:04 09/22/24 16:04 09/22/24 16:04 09/22/24 18:08
Physical Exam
General: Well Developed, Well Nourished and No Apparent Distress
HEENT: NormoCephalic, Moist mucous membranes and Atraumatic
Respiratory: Clear
Cardiac: S1/S2 and Regular Rhythm; No Murmur or Rub
GI: Soft, Non Tender, Non Distended and Normal Bowel Sounds; No Organomegaly
Rectal: Deferred by Provider
Musculoskeletal: No Clubbing, No Cyanosis and No Edema
Skin: Other (Bilateral lower extremities wound. Left lower extremity with open wounds)
Neuro: AO x 3 and Nonfocal/grossly intact
Psych: Calm
Laboratory Results
-
09/22/24 16:17
09/22/24 16:17
Laboratory Results
Total Bilirubin 0.3 mg/dl (0.2-1.3) 09/22/24 16:17
AST 19 U/L (17-59) 09/22/24 16:17
ALT < 10 U/L (0-50) 09/22/24 16:17
Alkaline Phosphatase 68 U/L (38-126) 09/22/24 16:17
Data Reviewed
-
Lab Data: Labs Reviewed by me
Impression/Plan
-
#Lower extremity cellulitis/wounds
#chronic venous insufficiency
-Zosyn wound care continue
- Wound care consulted
#Anemia of chronic disease
- Hemoglobin stable at 10.0
- Activity
- Continue to monitor
#Chronic kidney disease stage IIIb
- Creatinine 1.5
- Continue to monitor
#history of Cerebrovascular Accident
-Aspirin continued
#Parkinson's disease
-Carbidopa levodopa continued
-Continue Carbidopa-levodopa
#Seizure disorder
-divalproex continued
-Continue home Depakote
#History of psychotic disorder
#Schizophrenia
-fluoxetine continued
#Essential hypertension
-Lasix,hydralazine continued
#Hypercholesterolemia
-Continue statin
#Hypothyroidism
-Continue levothyroxine
#Psoriasis
#Chronic venous insufficiency
Full code
DVT prophylaxis
heparin sq
--- NOTE | 2024-09-22 18:44 | W.PN.UPDATE ---
Update Note
Progress Note Update
This note serves as an addendum to the H&P by side door worker RIO Stella PEREIRA
HPI
64M HX hyperlipidemia, hypothyroidism, hypertension, psoriasis, Parkinson disease, seizures, GERD, CVA seen at ER
- worsening bilateral lower extremities edema from wound care.
- increased pain increased foul-smelling and drainage.
ROS
denied any fever, chills, chest pain, short of breath.
denied any headache, dizzy or syncope.
- chronic cough
Vital Signs
Temp Pulse Resp BP Pulse Ox
98.5 F 69 18 122/76 96
09/22/24 16:04 09/22/24 16:04 09/22/24 16:04 09/22/24 16:04 09/22/24 18:08
PE
Gen: Not toxic
HEENT: nl speech, symmetric facial expression
Neck: supple
Lungs:CTA
Cor:RRR S1 S2
Abdomen: soft benign
APPLE PICKER: AAO3 grossly normal
MS: b/l Troy edema with cellulitic and macerated changes and, multiple open large ulcers
Abnormal Lab Results
09/22/24
16:17
RBC 3.85 L
Hgb 10.0 L
Hct 33.0 L
MCH 26.0 L
MCHC 30.3 L
RDW 15.1 H
Abs Immat Gran (auto) 0.1 H
Absolute Monos (auto) 1.0 H
Immature Gran % 0.6 H
Lymphocytes % 15.3 L
Monocytes % 11.7 H
Eosinophils % 7.5 H
Carbon Dioxide 31 H
BUN 32 H
Creatinine 1.5 H
Albumin 3.3 L
05/17/23 11/26/23 09/22/24
18:46 11:17 16:17
Creatinine 1.4 H 1.3 1.5 H
eGFR 57.18 > 60.00 51.99
ASSESSMENT & PLAN
B/L Troy cellulitis with multiple open large ulcers L> R
HX chronic venous insufficiency
- empiric Zosyn
- Wound care consulted
Anemia of chronic disease
- Hemoglobin stable at 10.0
- Trend Hgb
CKD3b
- Creatinine 1.5
- Trend Cr
HX CVA: on [employer] Aspirin continued
HX Parkinson's disease: on Carbidopa levodopa
Seizure disorder : Divalproex continued
HX Schizophrenia with psychosis: on fluoxetine
Essential hypertension : on Lasix,hydralazine continued
Hypercholesterolemia: on statin
Hypothyroidism; on [employer]GER Levothyroxine
Psoriasis
Full code
DVT prophylaxis; SQH
IP MS
[2024-09-22] MEDS: ZOSYN 100 IV (18:46)
[2024-09-22] MEDS: VANCOCIN 540 MG IV (19:28)
[2024-09-22 20:27] VITALS: BP 150/82; BMI 35.9
[2024-09-22] MEDS: NEURONTIN 300 MG PO (21:13)
[2024-09-22] MEDS: MELATONIN 5 MG PO (21:13)
[2024-09-22] MEDS: LIPITOR 20 MG PO (21:13)
[2024-09-22] MEDS: SINEMET 25-100 1 TABLET PO (21:13)
[2024-09-22] MEDS: GEODON 80 MG PO (21:13)
[2024-09-22] MEDS: DEPAKOTE SPRINKLE 625 MG PO (21:14)
--- NOTE | 2024-09-22 22:59 | PTCARENOTE ---
Patient arrived via stretcher with dx of cellulitis. AAOX3. No c/o pain or discomfort at current time. Call rosa within place. Oriented to unit.
[2024-09-22] MEDS: HEPARIN 5000 UNITS SC (23:11)
[2024-09-22] MEDS: ZOSYN 50 IV (23:11)
[2024-09-22 23:37] VITALS: BP 118/72
[2024-09-23] MEDS: SYNTHROID 25 MCG PO (05:27)
[2024-09-23] MEDS: VANCOCIN 535 MG IV (05:27)
[2024-09-23] MEDS: ZOSYN 50 IV ×3 (05:27→17:44)
--- NOTE | 2024-09-23 07:04 | W.PN.HOSP.TC ---
Addendum entered and electronically signed by Mark Hoffman MD 09/23/24 20:37:
Attending Addendum-
I saw and evaluated the patient. I reviewed the resident�s note and agree with findings and plan as documented in the resident�s note. Sub: Patient feels fatigued. Denies pain in LE. Denies fevrs chills. Full 12 point ROS reviewed and negative
except as documented Exam: Vitals reviewed in chart GEN-NAD heart RRR no M/R/G lungs clear abd soft obese NT ND EXt-B/L LE wrapped edematous
Plan:
#B/L Lower extremity cellulitis/wounds
#chronic venous insufficiency
-cont Zosyn and vanco day # 2
-wound care c/s
#Anemia of chronic disease
- Hemoglobin stable
- Continue to monitor
#Chronic kidney disease stage IIIa
-baseline cr @ 1.4
-avoid NT agents
-Continue to monitor
#history of Cerebrovascular Accident
-Aspirin continued
#Parkinson's disease
-Continue Carbidopa-levodopa
-PT OT speech
#Seizure disorder
-Continue home Depakote
#History of psychotic disorder
#Schizophrenia
-fluoxetine and geodon continued
#Essential hypertension
-Lasix,hydralazine continued
#Hypercholesterolemia
-Continue atorvastatin
#Hypothyroidism
-Continue levothyroxine
#Psoriasis
#Peripheral Neuropathy
- continue gabapentin
Full code
DVT prophylaxis
heparin sq
Dispo- From [facility]
ACP
Patient consented to discuss, was alone, time spent explanation of advance directives, changes in health status, patient�s health care wishes if the patient becomes unable to make health decisions, goals of care, code status, and prognosis- 16
minutes
Time spent coordinating care, review of plan of care with resident, personally reviewed previous records in EMR, med rec, labs, radiology, d/w nursing, family total time documented is exclusive of any additional time listed that was spent in advance
care planning discussion -�51 minutes
Original Note:
Today's Communication/Plan
-
MRSA pending result
Assessment / Plan
Assessment / Plan
Assessment and plan:
# B/L Lower limb extremities Cellulitis:
+ with multiple large open ulcers L> R
h/o venous insufficiency
- Zosyn Day: 2
Vancomycin Day: 2
- Wound dressing done.
MRSA result pending
#Anemia of chronic disease
- Hemoglobin stable at 10.0
- Continue to monitor H&H
#Chronic kidney disease stage IIIA
- Creatinine 1.5
-eGFR - 56.48
- Continue to monitor
#history of Cerebrovascular Accident
-Aspirin continued
#Parkinson's disease
-Carbidopa levodopa continued
#Seizure disorder
-divalproex continued
-Continue home Depakote
#History of psychotic disorder
#Schizophrenia
-fluoxetine continued
#Essential hypertension
-Lasix,hydralazine continued
#Hypercholesterolemia
-Continue statin
#Hypothyroidism
-Continue levothyroxine
#Psoriasis
#Chronic venous insufficiency
Disposition: [facility]
DVT Prophylaxis: heparin Sodium 5000 Units SC
Anticipated Discharge: 24 - 48 hours
Subjective/Interval History
-
Date of Service: September 23, 2024
Patient doesnt has any overnight concerns for today.
Objective Data
-
Labs:
Laboratory Results
09/23/24 07:40
09/23/24 07:40
Laboratory Results
Total Bilirubin 0.3 mg/dl (0.2-1.3) 09/22/24 16:17
AST 19 U/L (17-59) 09/22/24 16:17
ALT < 10 U/L (0-50) 09/22/24 16:17
Alkaline Phosphatase 68 U/L (38-126) 09/22/24 16:17
Vital Signs:
Vital Signs
Temp Pulse Resp BP Pulse Ox
98.3 F 63 16 118/72 95
09/22/24 23:37 09/22/24 23:37 09/22/24 23:37 09/22/24 23:37 09/22/24 23:37
I&O
09/22/24 09/23/24 09/24/24
06:59 06:59 06:59
Intake Total 1759
Balance 1759
Review of Systems
-
History Source: Patient
Respiratory: Reports No Symptoms
Cardiac: Reports No Symptoms
Abdomen/GI: Reports No Symptoms
Genitourinary: Reports No Symptoms
Skin: Reports Skin Thickening and Other (B/L lower extremities erythematous, pustular lesions present. )
Neuro: Reports No Symptoms
Endocrine: Reports No Symptoms
Hematologic / Lymphatic: Reports No Symptoms
Allergy / Immunology: Reports No Symptoms
Physical Exam
-
General: Other (Cervical Stenosis. )
HEENT: Normocephalic
Respiratory: Clear to Auscultation
Cardiac: Regular Rhythm and S1/S2
GI: Soft and Nontender
Genito-urinary: No Costovertebral Tender
Musculoskeletal: Other (B/L Lower limb erythema, pustules, swelling present, movement of toes present. )
Skin: Warm
Neuro: Awake, Alert and Oriented
Hematologic / Lymphatic: No Lymphadenopathy
Psych: Calm
[2024-09-23 07:51] VITALS: BP 135/67
[2024-09-23 08:10] LABS: Hematocrit 32.5 % (39.0-52.0); Hemoglobin 10.0 g/dL (13.0-18.0); Mean Corp Hgb Conc. 30.8 g/dL (33.0-37.0); Mean Corpuscular Volume 84.6 fL (80.0-94.0); Platelet Count 139 10^3/uL (130-400); Red Cell Dist. Width 15.5 % (11.5-14.5)
[2024-09-23] MEDS: SINEMET 25-100 1 TABLET PO ×3 (08:12→23:10)
[2024-09-23] MEDS: GEODON 80 MG PO ×2 (08:13→20:24)
[2024-09-23] MEDS: PROZAC 20 MG PO (08:13)
[2024-09-23] MEDS: NEURONTIN 300 MG PO ×3 (08:14→23:10)
[2024-09-23] MEDS: DEPAKOTE SPRINKLE 625 MG PO ×2 (08:14→20:24)
[2024-09-23] MEDS: LASIX 40 MG PO (08:14)
[2024-09-23] MEDS: HEPARIN 5000 UNITS SC ×2 (08:15→16:11)
[2024-09-23] MEDS: APRESOLINE 10 MG PO (08:17)
[2024-09-23] MEDS: LOW STRENGTH ASPIRIN 81 MG PO (08:17)
[2024-09-23 08:38] LABS: Blood Urea Nitrogen 24 mg/dl (9-20); Calcium 9.0 mg/dl (8.4-10.2); Carbon Dioxide 27 mmol/L (22-30); Chloride 110 mmol/L (98-107); Estimated Creatinine Clearance 64 ml/min; Glucose 89 mg/dl (70-99); Potassium 4.4 mmol/L (3.5-5.1); Sodium 141 mmol/L (135-145); eGFR 56.48
[2024-09-23 08:48] VITALS: BP 137/79
--- NOTE | 2024-09-23 09:30 | WOUNDNOTE ---
[facility] RN note: Patient admitted with cellulitis. Patient resides at a SNF.
See H&P for complete history.
PMH: HTN, psoriasis, Parkinson's disease, seizures, CVA, CKD3b, venous stasis ulcers, obesity.
Wound Location and type/assessment: Patient admitted with: full thickness (to subcutaneous layer) and partial thickness venous stasis ulcers le's (L>R), wounds mostly pink/clean with minimal yellow fibrin. Large amount of ss drainage. +Pedal
pulses. +Hemosiderosis and stasis dermatitis Le's. Psoriasis rash noted L thighs and R buttocks. Coccyx small linear dermal opening suspect r/t moisture and possible pressure. Patient stated he uses Noe wraps at SNF.
Appetite: on low cholesterol diet.
Pressure redistribution devices in place: [employer] Accumax. Patient stands with walker independently. He stated he can ambulate with walker too.
Plan: LE dressings changed. Vaseline to dry skin le's. Bilateral knee high Noe wrap applied. Dr. Cummins was in at end of visit who approved local skin/wound care and bilateral knee high Noe wraps. Patient wears an incontinent brief. Patient
incontinent of urine. Incontinent brief removed, Calazime applied to coccyx crease, incontinent pad with mesh underwear applied with help from JYOTI Carrera. Discussed with JOSE Mane.
Updated care plan and will follow as needed.
Recommend follow up at wound care center upon discharge.
--- NOTE | 2024-09-23 09:44 | WOUNDNOTE ---
LLE (ANTERIOR LATERAL)
--- NOTE | 2024-09-23 09:44 | WOUNDNOTE ---
L CALF (LATERAL POSTERIOR)
--- NOTE | 2024-09-23 09:45 | WOUNDNOTE ---
R CALF (MEDIAL POSTERIOR)
--- NOTE | 2024-09-23 09:46 | WOUNDNOTE ---
L CALF (MEDIAL POSTERIOR)
--- NOTE | 2024-09-23 09:46 | WOUNDNOTE ---
R CALF (MEDIAL POSTERIOR)
--- NOTE | 2024-09-23 09:47 | WOUNDNOTE ---
R CALF/ANKLE (POSTERIOR)
--- NOTE | 2024-09-23 10:52 | PHA.VAN.IN ---
Assessment
- Assessment
Renal Function: Appears similar to baseline
Concomitant Antimicrobials: piperacillin/tazobactam
Plan
- Plan
Initial / Loading Dose: 2000mg - 09/22 19:28
Maintenance Regimen: initiated on Vanc 1750mg Q24H last night - change to dose by level
Monitoring: random 09/24 0600
Received 1750mg dose this AM at 05:27
Pharmacokinetics Vancomycin I
- -
Patient Age: 64
Patient Sex: Male
Vancomycin Day #: 2
Indication: Skin And Soft Tissue
Requesting Provider: Alissa Batres
Pertinent Antimicrobial Allergies:
NKDA
Height / Weight:
Height 5 ft 8 in
Actual Weight 107.19 kg
Pertinent Past Medical History: BMI ~36, Parkinson's, CKD
- Vital Signs / Lab Results
Temp Pulse Resp BP Pulse Ox
98.3 F 57 17 135/67 96
09/23/24 07:51 09/23/24 07:51 09/23/24 07:51 09/23/24 08:14 09/23/24 07:51
Lab Results - Hematology
09/22/24 09/23/24
16:17 07:40
WBC 8.4 4.8
Lab Results - Chemistry
09/22/24 09/23/24
16:17 07:40
BUN 32 H 24 H
Creatinine 1.5 H 1.4 H
Estimated Creat Clear 61 64
Albumin 3.3 L
[2024-09-23 16:02] VITALS: BP 145/85
--- NOTE | 2024-09-23 16:38 | CM ---
Patient seen at bedside on . Patient from [facility] and plan is to return. Patient is LTC at the facility. CM spoke with liaison await call back regarding prior level of functioning. CM will continue to follow for discharge planning needs.
Plan; return to SNF
[2024-09-23] MEDS: HYDROPHOR 1 APPLIC TOPICAL (20:25)
[2024-09-23] MEDS: MELATONIN 5 MG PO (23:10)
[2024-09-23] MEDS: LIPITOR 20 MG PO (23:10)
[2024-09-23 23:39] VITALS: BP 122/75
[2024-09-24] MEDS: ZOSYN 50 IV ×3 (00:10→12:19)
[2024-09-24] MEDS: HEPARIN 5000 UNITS SC ×4 (00:11→23:14)
[2024-09-24] MEDS: SYNTHROID 25 MCG PO (05:47)
[2024-09-24 07:30] VITALS: BP 138/82
[2024-09-24] MEDS: LOW STRENGTH ASPIRIN 81 MG PO (07:50)
[2024-09-24] MEDS: PROZAC 20 MG PO (07:51)
[2024-09-24] MEDS: NEURONTIN 300 MG PO ×3 (07:51→21:52)
[2024-09-24] MEDS: DEPAKOTE SPRINKLE 625 MG PO ×2 (07:52→20:08)
[2024-09-24] MEDS: GEODON 80 MG PO ×2 (07:52→20:09)
[2024-09-24] MEDS: SINEMET 25-100 1 TABLET PO ×3 (07:52→21:52)
[2024-09-24] MEDS: APRESOLINE 10 MG PO (07:52)
[2024-09-24] MEDS: LASIX 40 MG PO (07:53)
[2024-09-24] MEDS: HYDROPHOR 1 APPLIC TOPICAL ×2 (07:53→21:52)
[2024-09-24 08:24] LABS: Hematocrit 34.2 % (39.0-52.0); Hemoglobin 10.7 g/dL (13.0-18.0); Mean Corp Hgb Conc. 31.3 g/dL (33.0-37.0); Mean Corpuscular Volume 84.4 fL (80.0-94.0); Nucleated Red Blood Cells % 0 % (-); Platelet Count 144 10^3/uL (130-400); Red Cell Dist. Width 15.3 % (11.5-14.5)
[2024-09-24 09:10] LABS: ALT (SGPT) < 10 U/L (0-50); AST (SGOT) 16 U/L (17-59); Albumin 3.3 g/dl (3.5-5.0); Alkaline Phosphatase 71 U/L (38-126); Blood Urea Nitrogen 24 mg/dl (9-20); Calcium 9.2 mg/dl (8.4-10.2); Carbon Dioxide 28 mmol/L (22-30); Chloride 109 mmol/L (98-107); Estimated Creatinine Clearance 64 ml/min; Glucose 85 mg/dl (70-99); Potassium 4.7 mmol/L (3.5-5.1); Sodium 142 mmol/L (135-145); Total Protein 6.7 g/dl (6.3-8.2); eGFR 56.48
--- NOTE | 2024-09-24 09:29 | PHA.VAN.FU ---
Vancomycin Assessment / Plan
- Assessment
Renal Function: Stable
WBC's are: Stable
In the past 24 hrs, patient has been: Afebrile
Concomitant Antimicrobials: piperacillin/tazobactam
- Assessment - Therapeutic Drug Monitoring
Random Level: 11.5 - drawn ~26H after previous dose of 1750mg
- Dosing Plan
Dosing by Level: Re-dose today (Vanc 1500mg)
- Monitoring Plan
Random Level: 09/25 06
- Follow Up
Pharmacy will continue to follow.
Vancomycin Follow UP
- -
Patient Age: 64
Patient Sex: Male
Vancomycin Day #: 3
Indication: Skin And Soft Tissue
Requesting Provider: Alissa Batres
Pertinent Antimicrobial Allergies:
NKDA
Height / Weight:
Height 5 ft 8 in
Actual Weight 107.19 kg
Pertinent Past Medical History: BMI ~36, Parkinson's, CKD
- Vital Signs / Lab Results
Temp Pulse Resp BP Pulse Ox
97.9 F 57 18 138/82 99
09/24/24 07:30 09/24/24 07:52 09/24/24 07:30 09/24/24 07:52 09/24/24 07:30
Lab Results - Hematology
09/22/24 09/23/24 09/24/24
16:17 07:40 07:45
WBC 8.4 4.8 5.1
Lab Results - Chemistry
09/22/24 09/23/24 09/24/24
16:17 07:40 07:45
BUN 32 H 24 H 24 H
Creatinine 1.5 H 1.4 H 1.4 H
Estimated Creat Clear 61 64 64
Albumin 3.3 L 3.3 L
Microbiology Results
09/22/24 21:43 MRSA Screen - Final
Nose Staph aureus MRSA
Therapeutic Drug Monitoring
Random Vancomycin 11.5 ug/ml 09/24/24 07:45
[2024-09-24] MEDS: VANCOCIN 530 MG IV (10:07)
--- NOTE | 2024-09-24 13:14 | W.PN.HOSP.TC ---
Addendum entered and electronically signed by Mark Hoffman MD 09/24/24 22:56:
Attending Addendum-
I saw and evaluated the patient. I reviewed the resident�s note and agree with findings and plan as documented in the resident�s note. Sub: Patient feels fatigued but improved overall. Denies pain in LE. Denies fevers chills. Full 12 point ROS
reviewed and negative except as documented Exam: Vitals reviewed in chart GEN-NAD heart RRR no M/R/G lungs clear abd soft obese NT ND EXt-B/L LE wrapped edematous
Plan:
#B/L Lower extremity cellulitis/wounds
#chronic venous insufficiency
- + MRSA screen
-DC Zosyn cont vanco for now
-transition to po abx on DC
-wound care
#Anemia of chronic disease
- Hemoglobin stable
- Continue to monitor
#CKD stage IIIa
-baseline cr @ 1.4
-avoid NT agents
-Continue to monitor
#history of Cerebrovascular Accident
-Aspirin continued
#Parkinson's disease
-Continue Carbidopa-levodopa
-PT OT speech
#Seizure disorder
-Continue home Depakote
#History of psychotic disorder
#Schizophrenia
-fluoxetine and geodon continued
#Essential hypertension
-Lasix,hydralazine continued
#Hypercholesterolemia
-Continue atorvastatin
#Hypothyroidism
-Continue levothyroxine
#Psoriasis
#Peripheral Neuropathy
- continue gabapentin
Full code
DVT prophylaxis
heparin sq
Dispo- From [facility] in AM may need snf
Time spent coordinating care, review of plan of care with resident, personally reviewed records in EMR, med rec, consults, notes, labs, radiology, d/w nursing � 51 mins
Original Note:
Today's Communication/Plan
-
Switch to oral medication on discharge
MRSA +
Zosyn was stopped.
Assessment / Plan
Assessment / Plan
Assessment and plan:
# B/L Lower limb extremities Cellulitis secondary to Venous Stasis:
+ with multiple large open ulcers L> R
h/o venous insufficiency
- Zosyn stopped
Vancomycin Day: 2
- Wound dressing done.
09/24/24 MRSA result +++
#Anemia of chronic disease
- Hemoglobin stable at 10.0
- Continue to monitor H&H
#Chronic kidney disease stage IIIA
- Creatinine 1.5
-eGFR - 56.48
- Continue to monitor
#history of Cerebrovascular Accident
-Aspirin continued
#Parkinson's disease
-Carbidopa levodopa continued
#Seizure disorder
-divalproex continued
-Continue home Depakote
#History of psychotic disorder
#Schizophrenia
-fluoxetine continued
#Essential hypertension
-Lasix,hydralazine continued
#Hypercholesterolemia
-Continue statin
#Hypothyroidism
-Continue levothyroxine
#Psoriasis
#Chronic venous insufficiency
Disposition: [facility]
DVT Prophylaxis: heparin Sodium 5000 Units SC
Anticipated Discharge: Within 24 hours
Subjective/Interval History
-
Date of Service: September 24, 2024
pt has no concerns for today.
Objective Data
-
Labs:
09/24/24 07:45
09/24/24 07:45
Laboratory Results
Total Bilirubin 0.4 mg/dl (0.2-1.3) 09/24/24 07:45
AST 16 U/L (17-59) L 09/24/24 07:45
ALT < 10 U/L (0-50) 09/24/24 07:45
Alkaline Phosphatase 71 U/L (38-126) 09/24/24 07:45
Laboratory Results
09/24/24
07:45
WBC 5.1
Hgb 10.7 L
Hct 34.2 L
Plt Count 144
Sodium 142
Potassium 4.7
Chloride 109 H
Carbon Dioxide 28
BUN 24 H
Creatinine 1.4 H
Glucose 85
Calcium 9.2
Total Bilirubin 0.4
AST 16 L
ALT < 10
Alkaline Phosphatase 71
Vital Signs:
Vital Signs
Temp Pulse Resp BP Pulse Ox
97.9 F 57 18 138/82 99
09/24/24 07:30 09/24/24 07:52 09/24/24 07:30 09/24/24 07:52 09/24/24 07:30
I&O
09/23/24 09/24/24 09/25/24
06:59 06:59 06:59
Intake Total 1760 / 1760 1440 / 1440
Balance 1760 / 1760 1440 / 1440
Review of Systems
-
History Source: Patient
Respiratory: Reports No Symptoms
Cardiac: Reports No Symptoms
Abdomen/GI: Reports No Symptoms
Genitourinary: Reports No Symptoms
Skin: Reports Rash (b/l lower limb venous stasis with purulent discharge and (right side above knee new erythematous patches++) )
Neuro: Reports No Symptoms
Endocrine: Reports No Symptoms
Hematologic / Lymphatic: Reports No Symptoms
Allergy / Immunology: Reports No Symptoms
Physical Exam
-
General: Well Developed
Respiratory: Clear to Auscultation
Cardiac: Regular Rhythm and S1/S2
GI: Soft and Nontender
Genito-urinary: No Costovertebral Tender
Skin: Warm
Neuro: AO x 3
Hematologic / Lymphatic: No Lymphadenopathy
[2024-09-24 15:24] VITALS: BP 116/68
[2024-09-24] MEDS: MELATONIN 5 MG PO (21:52)
[2024-09-24] MEDS: LIPITOR 20 MG PO (21:52)
[2024-09-24 22:49] VITALS: BP 140/77
[2024-09-25] MEDS: SYNTHROID 25 MCG PO (05:27)
[2024-09-25 07:15] VITALS: BP 131/77
[2024-09-25 07:21] LABS: Hematocrit 34.8 % (39.0-52.0); Hemoglobin 10.6 g/dL (13.0-18.0); Mean Corp Hgb Conc. 30.5 g/dL (33.0-37.0); Mean Corpuscular Volume 85.3 fL (80.0-94.0); Platelet Count 138 10^3/uL (130-400); Red Cell Dist. Width 15.1 % (11.5-14.5)
[2024-09-25 07:52] LABS: Blood Urea Nitrogen 22 mg/dl (9-20); Calcium 8.9 mg/dl (8.4-10.2); Carbon Dioxide 29 mmol/L (22-30); Chloride 109 mmol/L (98-107); Estimated Creatinine Clearance 64 ml/min; Glucose 87 mg/dl (70-99); Potassium 4.6 mmol/L (3.5-5.1); Sodium 142 mmol/L (135-145); eGFR 56.48
[2024-09-25] MEDS: SINEMET 25-100 1 TABLET PO ×2 (08:19→16:10)
[2024-09-25] MEDS: APRESOLINE 10 MG PO (08:19)
[2024-09-25] MEDS: GEODON 80 MG PO (08:20)
[2024-09-25] MEDS: HEPARIN 5000 UNITS SC ×2 (08:20→16:03)
[2024-09-25] MEDS: HYDROPHOR 1 APPLIC TOPICAL (08:20)
[2024-09-25] MEDS: LASIX 40 MG PO (08:20)
[2024-09-25] MEDS: DEPAKOTE SPRINKLE 625 MG PO (08:20)
[2024-09-25] MEDS: NEURONTIN 300 MG PO ×2 (08:20→16:03)
[2024-09-25] MEDS: PROZAC 20 MG PO (08:21)
[2024-09-25] MEDS: LOW STRENGTH ASPIRIN 81 MG PO (08:21)
--- NOTE | 2024-09-25 08:46 | W.PN.HOSP.TC ---
Addendum entered and electronically signed by Mark Hoffman MD 09/25/24 22:20:
Attending Addendum-
I saw and evaluated the patient. I reviewed the resident�s note and agree with findings and plan as documented in the resident�s note. Sub: Patient feels improved overall. Wants to go home. Denies pain in LE. Denies fevers chills. Full 12 point ROS
reviewed and negative except as documented Exam: Vitals reviewed in chart GEN-NAD heart RRR no M/R/G lungs clear abd soft obese NT ND EXt-B/L LE wrapped edematous
Plan:
#B/L Lower extremity cellulitis/wounds
#chronic venous insufficiency
- + MRSA screen
-DC Zosyn- cont vanco while in house
-transition to po abx on DC - clinda
-wound care
#Anemia of chronic disease
- Hemoglobin stable
- Continue to monitor
#CKD stage IIIa
-baseline cr @ 1.4
-avoid NT agents
-Continue to monitor
#history of Cerebrovascular Accident
-Aspirin continued
#Parkinson's disease
-Continue Carbidopa-levodopa
-PT OT speech
#Seizure disorder
-Continue home Depakote
#History of psychotic disorder
#Schizophrenia
-fluoxetine and geodon continued
#Essential hypertension
-Lasix,hydralazine continued
#Hypercholesterolemia
-Continue atorvastatin
#Hypothyroidism
-Continue levothyroxine
#Psoriasis
#Peripheral Neuropathy
- continue gabapentin
Full code
DVT prophylaxis
heparin sq
Dispo- DC back to [facility]
Time spent coordinating care, DC planning, review of DC plan of care with resident, transition of care, review of records, med rec/scripts sent electronically, consults, notes, d/w consultants, nursing, family, and CM� 31 mins >50% of this time was
devoted to counseling and coordination of care
Original Note:
Today's Communication/Plan
-
Patient is charged to [facility].
Assessment / Plan
Assessment / Plan
Assessment and plan:
# B/L Lower limb extremities Cellulitis secondary to Venous Stasis:
+ with multiple large open ulcers L> R
h/o venous insufficiency
- Zosyn stopped
Vancomycin Day: 2 stopped
- Wound dressing done.
Patient started on
09/24/24 MRSA result +++
Clindamycin 450 mg TID for 7 days to be continued.
Follow up with PCP in future.
#Anemia of chronic disease
- Hemoglobin stable at 10.0
- Continue to monitor H&H
#Chronic kidney disease stage IIIA
- Creatinine 1.5
-eGFR - 56.48
- Continue to monitor
#history of Cerebrovascular Accident
-Aspirin continued
#Parkinson's disease
-Carbidopa levodopa continued
#Seizure disorder
-divalproex continued
-Continue home Depakote
#History of psychotic disorder
#Schizophrenia
-fluoxetine continued
#Essential hypertension
-Lasix,hydralazine continued
#Hypercholesterolemia
-Continue statin
#Hypothyroidism
-Continue levothyroxine
#Psoriasis
#Chronic venous insufficiency
Disposition: [facility]
DVT Prophylaxis: heparin Sodium 5000 Units SC
Anticipated Discharge: Today
Subjective/Interval History
-
Date of Service: September 25, 2024
Today pt b/l lower extremities wound is healing,
Objective Data
-
Labs:
Laboratory Results
09/25/24
06:55
WBC 5.5
Hgb 10.6 L
Hct 34.8 L
Plt Count 138
Sodium 142
Potassium 4.6
Chloride 109 H
Carbon Dioxide 29
BUN 22 H
Creatinine 1.4 H
Glucose 87
Calcium 8.9
Vital Signs:
Vital Signs
Temp Pulse Resp BP Pulse Ox
97.9 F 57 20 131/77 95
09/25/24 07:15 09/25/24 07:15 09/25/24 07:15 09/25/24 07:15 09/25/24 07:15
I&O
09/24/24 09/25/24 09/26/24
06:59 06:59 06:59
Intake Total 1440 / 1440 940 / 940
Balance 1440 / 1440 940 / 940
Review of Systems
-
History Source: Patient
Respiratory: Reports No Symptoms
Cardiac: Reports No Symptoms
Abdomen/GI: Reports No Symptoms
Genitourinary: Reports No Symptoms
Musculoskeletal: Reports No Symptoms
Skin: Reports Other (stasis ulcer)
Neuro: Reports No Symptoms
Endocrine: Reports No Symptoms
Hematologic / Lymphatic: Reports No Symptoms
Allergy / Immunology: Reports No Symptoms
Physical Exam
-
General: No Apparent Distress
HEENT: Moist Mucous Membranes
Respiratory: Clear to Auscultation
Cardiac: Regular Rhythm and S1/S2
GI: Soft and Nontender
Genito-urinary: No Costovertebral Tender
Musculoskeletal: Other (b/l lower extremities edema, venous stasis present++, with b/l cellulitis, non purulent without foul smelling. )
Skin: Other (Psoriatic patches presented at right outer thighs. )
Neuro: AO x 3
Psych: Calm
--- NOTE | 2024-09-25 08:50 | PHA.VAN.FU ---
Vancomycin Assessment / Plan
- Assessment
Renal Function: Stable
WBC's are: WNL
In the past 24 hrs, patient has been: Afebrile
- Assessment - Therapeutic Drug Monitoring
Random Level: 09/25 @06:55 12.7 ~21 hours post last dose
- Dosing Plan
Dosing by Level: Re-dose today (1000mg)
- Monitoring Plan
Random Level: Ordered with morning labs (0600) for 09/26
- Follow Up
Pharmacy will continue to follow.
Vancomycin Follow UP
- -
Patient Age: 64
Patient Sex: Male
Vancomycin Day #: 4
Indication: Skin And Soft Tissue
Requesting Provider: Alissa Batres
Pertinent Antimicrobial Allergies:
NKDA
Height / Weight:
Height 5 ft 8 in
Actual Weight 107.19 kg
Pertinent Past Medical History: BMI ~36, Parkinson's, CKD
- Vital Signs / Lab Results
Temp Pulse Resp BP Pulse Ox
97.9 F 57 20 131/77 95
09/25/24 07:15 09/25/24 07:15 09/25/24 07:15 09/25/24 07:15 09/25/24 07:15
Lab Results - Hematology
09/22/24 09/23/24 09/24/24
16:17 07:40 07:45
WBC 8.4 4.8 5.1
09/25/24
06:55
WBC 5.5
Lab Results - Chemistry
09/22/24 09/23/24 09/24/24
16:17 07:40 07:45
BUN 32 H 24 H 24 H
Creatinine 1.5 H 1.4 H 1.4 H
Estimated Creat Clear 61 64 64
Albumin 3.3 L 3.3 L
09/25/24
06:55
BUN 22 H
Creatinine 1.4 H
Estimated Creat Clear 64
Albumin
Microbiology Results
09/22/24 21:43 MRSA Screen - Final
Nose Staph aureus MRSA
Therapeutic Drug Monitoring
Random Vancomycin 12.7 ug/ml 09/25/24 06:55
[2024-09-25] MEDS: VANCOCIN 200 IV (10:44)
--- NOTE | 2024-09-25 12:33 | CM ---
Addendum entered by Isabel Velez 09/25/24 16:00:
[facility] requested [facility] to review records for possible admission to [facility] for wound care. Records were faxed to [facility] (liaison) at [place], [place] for review. , . Per [facility], after
review, patient does not meet LTAC level of care.
Original Note:
Patient has been medically cleared for discharge back to [facility] for resumption of LTC. Ambulance transport has been requested and scheduled for 5:30PM. IMM completed.
NURSE To NURSE REPORT #: [phone]
FAX #: [phone]
[2024-09-25 13:54] VITALS: BP 120/76; PULSE 75
[2024-09-25 15:20] VITALS: BP 149/65
[2024-09-25 17:30] VITALS: BP 150/65
--- NOTE | 2024-09-25 21:05 | W.DCSUMMARY ---
Addendum entered and electronically signed by Mark Hoffman MD 09/25/24 22:21:
Read, reviewed, and agree. See same day progress note for additional details.
Lev Hoffman MD
Original Note:
Documented by User: Steffi Cummins MD, Resident 09/25/24 21:34
Discharge Summary
Discharge Data
Date of Admission: 09/22/24
Date of Discharge: 09/25/24
-
Pending Results: No
Hospital Course
Discharging Physician : Dr Steffi Cummins
Dr Mark Polo.
Disposition : [facility]
Primary care physician : Dr Terry Borden.
Principal Discharge diagnosis : Bilateral Lower extremities vascular stasis with secondary cellulitis.
Chronic Discharge diagnosis : Parkinson Disease continued with carbidopa 25 mg-levodopa 100 mg tablet 1 tab PO TID
Psoriasis continued with guselkumab 100 mg/mL subcutaneous auto-injector (Tremfya) 100 mg SC
#Chronic kidney disease stage IIIA with Creatinine 1.5, eGFR - 56.48
#history of Cerebrovascular Accident continued with Aspirin
#Parkinson's disease continued with Carbidopa levodopa
#Seizure disorder continued with divalproex.
#Schizophrenia continued with fluoxetine
#Essential hypertension continued with Lasix,hydralazine
#Hypercholesterolemia Continued with statin
#Hypothyroidism Continued with levothyroxine.
Hospital Course : On 09/22/24 64-year-old male presented to ED with bilateral foul smelling discharge, drainage, extremity edema from the wound. His past medical history includes hyperlipidemia, hypothyroidism, hypertension, psoriasis, Parkinson
disease, seizures, GERD, CVA. Bilateral wound was not associated with fever, chills, shortness of breath, headache, dizzy or syncope, dysuria, hematuria. In the ER patient received Vanco and Zosyn followed by wound dressing done. On day 3 MRSA
result came positive and Zosyn 3.375 mg stopped vancomycin 1500mg iv continued. On 09/25/2024 Vanco 1500 mg was stopped and patient discharged with Clindamycin 450 mg 3 times daily for 7 days. Patient was stable at the time of discharge.
Important imaging findings : none
Discharge Plan
-
Patient Disposition: [facility]
Discharge Diagnosis/Procedures: Bilateral venous stasis with cellulitis MRSA+
Condition: Good
Diet: No restrictions
Activity: No restrictions
Driving Restrictions: As prior to admission
Activity Restrictions/Additional Instructions:
Wound Care Instructions
LE wounds-clean with saline or Vashe wound cleanser, Aquaphor ointment to surrounding skin, adaptic, alginate, ABD pad, secure with Kerlix, change bid and prn drainage.
Bilateral knee high Noe as tolerated.
Miconazole powder bid prn yeasty red skin folds.
Zinc barrier ointment to coccyx crease MASD bid.
Pressure redistributing chair cushion (i.e. Air, Roho).
Elevate heels off bed with pillows; add air chair cushion on top.
Bilateral knee high Noe wraps as tolerated.
Follow up with wound child care specialist or at wound care center call for an appointment.
Referrals:
Terry Borden DO [Family Provider, Family Practice]
Additional Discharge Medication Instructions: Take Clindamycin three 150mg capsules (450mg) every 6hours
Prescriptions:
New
clindamycin HCl [Cleocin HCl] 150 mg capsule
450 mg PO Q6H 7 Days Qty: 84 0RF
Continued
ziprasidone HCl [Geodon] 80 MG capsule
80 mg PO BID
furosemide [Lasix] 40 MG tablet
40 mg PO DAILY
divalproex 125 MG capsule, delayed rel sprinkle
625 mg PO BID
acetaminophen 325 MG tablet
650 mg PO Q6HPRN MDD 3000 MG PRN (Reason: Mild pain/Temp>100F)
levothyroxine [Synthroid] 25 mcg Tablet
25 mcg PO DAILY
gabapentin 300 mg Capsule
300 mg PO TID
carbidopa-levodopa 25-100 mg Tablet
1 tab PO TID
simvastatin 40 mg Tablet
40 mg PO HS
Robitussin Severe Day/Night
10 ml PO Q6HPRN PRN (Reason: cough)
albuterol sulfate 90 mcg/actuation Hfa Aerosol Inhaler
2 puff INHALATION R Q6HPRN PRN (Reason: sob/wheezing w/ ambulation)
aspirin [Children's Aspirin] 81 mg Tablet,Chewable
81 mg PO DAILY Qty: 30 1RF
multivitamin [Daily-Ayad] Tablet
1 tab PO DAILY
hydralazine 10 mg Tablet
10 mg PO DAILY
tramadol 50 mg Tablet
50 mg PO Q8HPRN PRN (Reason: moderate pain)
magnesium hydroxide [Milk of Magnesia] 400 mg/5 mL Suspension
30 ml PO [id number] PRN (Reason: if no BM x 3 days)
bisacodyl [Dulcolax (bisacodyl)] 10 mg Suppository
10 mg LA DAILY PRN (Reason: if MOM ineffective)
Fleet Enema 19-7 gram/118 mL Enema
118 ml LA DAILYPRN PRN (Reason: if supp ineffective)
cholecalciferol (vitamin D3) 1,250 mcg (50,000 unit) Capsule
1,250 mcg PO QMONTH
Patient Comments:
09/22/2024, of the month.
ibuprofen 400 mg Tablet
400 mg PO DAILY Qty: 0 0RF
fluoxetine [Prozac] 20 mg Capsule
20 mg PO DAILY Qty: 0 0RF
melatonin 5 mg Tablet
5 mg PO HS Qty: 0 0RF
Tremfya 100 mg/mL Auto-Injector
100 mg SC [id number] Qty: 0 0RF
Discharge Orders:
Discharge Patient (As Directed); Ordered 09/25/24
Ordered By: Homar Harrington
Discharge Date and Time
Discharge Date/Time: 09/25/24 18:36
Print Language: MALAWIAN

Documented by User: Mark Hoffman MD 09/25/24 22:19
Discharge Summary
Discharge Data
Date of Admission: 09/22/24
Date of Discharge: 09/25/24
Discharge Plan
-
Patient Disposition: Penitentiary[facility]SNF
Discharge Diagnosis/Procedures: Bilateral venous stasis with cellulitis MRSA+
Condition: Good
Diet: No restrictions
Activity: No restrictions
Driving Restrictions: As prior to admission
Activity Restrictions/Additional Instructions:
Wound Care Instructions
LE wounds-clean with saline or Vashe wound cleanser, Aquaphor ointment to surrounding skin, adaptic, alginate, ABD pad, secure with Kerlix, change bid and prn drainage.
Bilateral knee high Noe as tolerated.
Miconazole powder bid prn yeasty red skin folds.
Zinc barrier ointment to coccyx crease MASD bid.
Pressure redistributing chair cushion (i.e. Air, Roho).
Elevate heels off bed with pillows; add air chair cushion on top.
Bilateral knee high Noe wraps as tolerated.
Follow up with wound child care specialist or at wound care center call for an appointment.
Referrals:
Terry Borden DO [Family Provider, Family Practice]
Additional Discharge Medication Instructions: Take Clindamycin three 150mg capsules (450mg) every 6hours
Prescriptions:
New
clindamycin HCl [Cleocin HCl] 150 mg capsule
450 mg PO Q6H 7 Days Qty: 84 0RF
Continued
ziprasidone HCl [Geodon] 80 MG capsule
80 mg PO BID
furosemide [Lasix] 40 MG tablet
40 mg PO DAILY
divalproex 125 MG capsule, delayed rel sprinkle
625 mg PO BID
acetaminophen 325 MG tablet
650 mg PO Q6HPRN MDD 3000 MG PRN (Reason: Mild pain/Temp>100F)
levothyroxine [Synthroid] 25 mcg Tablet
25 mcg PO DAILY
gabapentin 300 mg Capsule
300 mg PO TID
carbidopa-levodopa 25-100 mg Tablet
1 tab PO TID
simvastatin 40 mg Tablet
40 mg PO HS
Robitussin Severe Day/Night
10 ml PO Q6HPRN PRN (Reason: cough)
albuterol sulfate 90 mcg/actuation Hfa Aerosol Inhaler
2 puff INHALATION R Q6HPRN PRN (Reason: sob/wheezing w/ ambulation)
aspirin [Children's Aspirin] 81 mg Tablet,Chewable
81 mg PO DAILY Qty: 30 1RF
multivitamin [Daily-Ayad] Tablet
1 tab PO DAILY
hydralazine 10 mg Tablet
10 mg PO DAILY
tramadol 50 mg Tablet
50 mg PO Q8HPRN PRN (Reason: moderate pain)
magnesium hydroxide [Milk of Magnesia] 400 mg/5 mL Suspension
30 ml PO [id number] PRN (Reason: if no BM x 3 days)
bisacodyl [Dulcolax (bisacodyl)] 10 mg Suppository
10 mg LA DAILY PRN (Reason: if MOM ineffective)
Fleet Enema 19-7 gram/118 mL Enema
118 ml LA DAILYPRN PRN (Reason: if supp ineffective)
cholecalciferol (vitamin D3) 1,250 mcg (50,000 unit) Capsule
1,250 mcg PO QMONTH
Patient Comments:
09/22/2024, of the month.
ibuprofen 400 mg Tablet
400 mg PO DAILY Qty: 0 0RF
fluoxetine [Prozac] 20 mg Capsule
20 mg PO DAILY Qty: 0 0RF
melatonin 5 mg Tablet
5 mg PO HS Qty: 0 0RF
Tremfya 100 mg/mL Auto-Injector
100 mg SC [id number] Qty: 0 0RF
Discharge Orders:
Discharge Patient (As Directed); Ordered 09/25/24
Ordered By: Homar Harrington
Discharge Date and Time
Discharge Date/Time: 09/25/24 18:36
Print Language: MALAWIAN
== END 2024-09-25 18:36 | DRG 593 ==
LOC: 4 WEST ACU 18:53
PROVIDERS: Registered Nurse; Student in an Organized Health Care Education/Training Program; ADMITTING PHYSICIAN Internal Medicine; ATTENDING PHYSICIAN Family Medicine; EMERGENCY PHYSICIAN Emergency Medicine; FAMILY PHYSICIAN Student in an Organized Health Care Education/Training Program
DX: L97.929 Non-pressure chronic ulcer of unspecified part of left lower leg with unspecified severity (principal); L03.115 Cellulitis of right lower limb; L03.116 Cellulitis of left lower limb; I87.8 Other specified disorders of veins; L97.919 Non-pressure chronic ulcer of unspecified part of right lower leg with unspecified severity; I87.2 Venous insufficiency (chronic) (peripheral); E03.9 Hypothyroidism, unspecified; E78.00 Pure hypercholesterolemia, unspecified; I12.9 Hypertensive chronic kidney disease with stage 1 through stage 4 chronic kidney disease, or unspecified chronic kidney disease; K21.9 Gastro-esophageal reflux disease without esophagitis; B95.62 Methicillin resistant Staphylococcus aureus infection as the cause of diseases classified elsewhere; G20.A1 Parkinson's disease without dyskinesia, without mention of fluctuations; D63.1 Anemia in chronic kidney disease; G40.909 Epilepsy, unspecified, not intractable, without status epilepticus; N18.31 Chronic kidney disease, stage 3a; F20.9 Schizophrenia, unspecified; G62.9 Polyneuropathy, unspecified; L40.9 Psoriasis, unspecified; R60.0 Localized edema; R05.3 Chronic cough; Z60.2 Problems related to living alone; Z87.891 Personal history of nicotine dependence; Z79.890 Hormone replacement therapy; Z79.82 Long term (current) use of aspirin; Z86.73 Personal history of transient ischemic attack (TIA), and cerebral infarction without residual deficits; Z11.52 Encounter for screening for COVID-19
CPT/HCPCS: 71046; 80048; 80053; 80202; 85025; 85027; 87070; 87147; 87811; 96365; 96375; 97110; 97161; 97530; 99284